=== PATIENT | male | born 1950 | race Two or more races ===

== ENCOUNTER 2020-05-23 10:37 | Inpatient (IN) | payer BC, MEDICARE ==
[2020-05-23] MEDS ORDERED: SODIUM CHLORIDE 0.9% 1,000 ML IV STA (10:56)
--- NOTE | 2020-05-23 11:05 | ED ---
General Adult HPI - General Chief complaint: Weakness Stated complaint: SOB, weakness Time Seen by Provider: 05/23/20 10:55 Source: patient Mode of arrival: ambulatory Limitations: no limitations - History of Present Illness Initial comments: Dictation was produced using Emulate dictation software. please excuse any grammatical, word or spelling errors. This patient was cared for during a federal and state declared state of emergency secondary to Covid 19 Chief Complaint: 70-year-old male multiple comorbidities presents with general ized weakness. History of Present Illness: 70-year-old male he has past medical history of liver transplant performed several years ago in [place]. 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 Since yesterday patient is noted that he's been significantly weaker. Complains of mild shortness of breath it's only worse with exertion. Just reports that he has palpitations. Reports that his palpitations are constant. He has no pain complaints. Otherwise he feels okay. Denies any nausea vomiting. No abdominal pain. No diarrhea. He denies any cardiac or lung problems. States that he feels very weak especially with ambulating to the bathroom. Patient lives in [place] however he is in the area staying at his house in [place]. The ROS documented in this emergency department record has been reviewed and confirmed by me. Those systems with pertinent positive or negative responses have been documented in the HPI. All other systems are other negative and/or n oncontributory. PHYSICAL EXAM: General Impression: Alert and oriented x3, not in acute distress HEENT: Normocephalic atraumatic, extra-ocular movements intact, pupils equal and reactive to light bilaterally, mucous membranes moist. Cardiovascular: Tachycardic, regular, grade 2/6 murmur Chest: Able to complete full sentences, no retractions, no tachypnea Abdomen: abdomen soft, non-tender, non-distended, no organomegaly Musculoskeletal: Pulses present and equal in all extremities, no peripheral edema Motor: no focal deficits noted Neurological: CN II-XII grossly intact, no focal motor or sensory deficits noted Skin: Intact with no visualized rashes Psych: Normal affect and mood ED course: 70-year-old male presents with palpitations, generalized weakness all signs upon arrival shows heart rate 133, blood pressure 92/63, rest of vital signs within acceptable limits Laboratory evaluation obtained. Patient is leukocytosis of 13.8 of unclear significance. The localizing symptoms to suggest infection. Hemoglobin is 10.1. Coag panel is unremarkable. D-dimer is 0.59. Age-adjusted level is normal. Metabolic panel shows some 132, potassium 5.2 with slight hemolysis. There is mild acidosis. BUN 76, crit any sort 0.06. This is concerning for prerenal azotemia. Glucose is 177. AST 67, ALT is 52, alk phos is 294. Troponin elevated 0.259. There is some concern for cardiac process. Chest x- ray shows right diaphragmatic elevation. Ultrasound was used to look and cardiac windows. There is no pericardial effusion. While waiting in the emergency department patient had an episode of syncope. His heart rate dropped into the 50s and his blood pressure systolic went down into the 70s. EKG was performed showing no dynamic changes. Stat echocardiogram is ordered. Case is discussed with Dr. Murcia who is on-call for cardiology. His recommendations are to trend troponins and he will review echocardiogram. Patient reevaluated at bedside is fully recovered. He states he feels fine after that syncopal event. Echocardiogram was performed. Pending cardiology read. Case is discussed with Dr. Farnsworth. He evaluated patient bedside and was agreeable for cardiac stepdown admission. EKG interpretation: Ventricular rate 131, sinus tachycardia,. 160, QRS 68, QTC 419. No OH prolongation, no QTC prolongation, no ST or T-wave changes noted. EKG compared to [default value] showing no changes. Overall, this EKG is unremarkable - Related Data Home Medications Medication Instructions Recorded Confirmed Acetaminophen Tab [Tylenol Tab] 1,000 mg PO Q6HR PRN 05/23/20 05/23/20 Allopurinol [Zyloprim] 100 mg PO DAILY 05/23/20 05/23/20 Diltiazem Oral [Cardizem Oral] 30 mg PO BID 05/23/20 05/23/20 Multivitamins, Thera [Multivitamin 1 tab PO DAILY 05/23/20 05/23/20 (formulary)] Tenofovir Alafenamide Fumarate 25 mg PO DAILY 05/23/20 05/23/20 [Vemlidy] Ursodiol [Moisés] 250 mg PO TID 05/23/20 05/23/20 cloNIDine HCL [Catapres] 0.1 mg PO BID 05/23/20 05/23/20 Allergies Allergy/AdvReac Type Severity Reaction Status Date / Time No Known Allergies Allergy Verified 05/23/20 11:47 Review of Systems ROS Statement: Those systems with pertinent positive or pertinent negative responses have been documented in the HPI. ROS Other: All systems not noted in ROS Statement are negative. Past Medical History Past Medical History: Liver Disease Additional Past Medical History / Comment(s): liver transplant History of Any Multi-Drug Resistant Organisms: None Reported Additional Past Surgical History / Comment(s): liver transplant 1988 Past Psychological History: No Psychological Hx Reported Smoking Status: Never smoker Past Alcohol Use History: None Reported Past Drug Use History: None Reported General Exam Limitations: no limitations Course Vital Signs 05/23/20 05/23/20 05/23/20 10:41 10:44 11:44 Temperature 97.7 F Pulse Rate 133 H 103 H Respiratory 16 20 20 Rate Blood Pressure 92/63 O2 Sat by Pulse 98 Oximetry 05/23/20 05/23/20 12:30 13:00 Temperature Pulse Rate 48 L 107 H Respiratory 14 14 Rate Blood Pressure 94/59 O2 Sat by Pulse 100 100 Oximetry Medical Decision Making - Lab Data Result diagrams: 05/23/20 11:19 05/23/20 11:19 Lab Results 05/23/20 05/23/20 05/23/20 Range/Units 11:19 11:19 11:19 WBC 13.8 H (3.8-10.6) k/uL RBC 3.29 L (4.30-5.90) m/uL Hgb 10.1 L (13.0-17.5) gm/dL Hct 31.6 L (39.0-53.0) % MCV 96.0 (80.0-100.0) fL MCH 30.9 (25.0-35.0) pg MCHC 32.1 (31.0-37.0) g/dL RDW 14.5 (11.5-15.5) % Plt Count 247 (150-450) k/uL Neutrophils % 85 % Lymphocytes % 10 % Monocytes % 3 % Eosinophils % 1 % Basophils % 0 % Neutrophils # 11.6 H (1.3-7.7) k/uL Lymphocytes # 1.4 (1.0-4.8) k/uL Monocytes # 0.5 (0-1.0) k/uL Eosinophils # 0.1 (0-0.7) k/uL Basophils # 0.1 (0-0.2) k/uL PT 10.0 (9.0-12.0) sec INR 1.0 (<1.2) APTT 24.2 (22.0-30.0) sec D-Dimer 0.59 (<0.60) mg/L FEU VBG pH (7.31-7.41) VBG pCO2 (37-51) mmHg VBG HCO3 (24-28) mmol/L Sodium 132 L (137-145) mmol/L Potassium 5.2 H (3.5-5.1) mmol/L Chloride 103 (98-107) mmol/L Carbon Dioxide 19 L (22-30) mmol/L Anion Gap 10 mmol/L BUN 76 H (9-20) mg/dL Creatinine 1.06 (0.66-1.25) mg/dL Est GFR (CKD-EPI)AfAm 83 (>60 ml/min/1.73 sqM) Est GFR (CKD-EPI)NonAf 72 (>60 ml/min/1.73 sqM) Glucose 177 H (74-99) mg/dL POC Glucose (mg/dL) (75-99) mg/dL POC Glu Engine Testing Supervisor ID Plasma Lactic Acid Cirilo (0.7-2.0) mmol/L Calcium 9.8 (8.4-10.2) mg/dL Magnesium 1.8 (1.6-2.3) mg/dL Total Bilirubin 0.7 (0.2-1.3) mg/dL AST 67 H (17-59) U/L ALT 52 H (4-49) U/L Alkaline Phosphatase 294 H (38-126) U/L Troponin I (0.000-0.034) ng/mL NT-Pro-B Natriuret Pep pg/mL Total Protein 7.5 (6.3-8.2) g/dL Albumin 3.9 (3.5-5.0) g/dL Lipase 114 (23-300) U/L 05/23/20 05/23/20 05/23/20 Range/Units 11:19 11:19 11:19 WBC (3.8-10.6) k/uL RBC (4.30-5.90) m/uL Hgb (13.0-17.5) gm/dL Hct (39.0-53.0) % MCV (80.0-100.0) fL MCH (25.0-35.0) pg MCHC (31.0-37.0) g/dL RDW (11.5-15.5) % Plt Count (150-450) k/uL Neutrophils % % Lymphocytes % % Monocytes % % Eosinophils % % Basophils % % Neutrophils # (1.3-7.7) k/uL Lymphocytes # (1.0-4.8) k/uL Monocytes # (0-1.0) k/uL Eosinophils # (0-0.7) k/uL Basophils # (0-0.2) k/uL PT (9.0-12.0) sec INR (<1.2) APTT (22.0-30.0) sec D-Dimer (<0.60) mg/L FEU VBG pH (7.31-7.41) VBG pCO2 (37-51) mmHg VBG HCO3 (24-28) mmol/L Sodium (137-145) mmol/L Potassium (3.5-5.1) mmol/L Chloride (98-107) mmol/L Carbon Dioxide (22-30) mmol/L Anion Gap mmol/L BUN (9-20) mg/dL Creatinine (0.66-1.25) mg/dL Est GFR (CKD-EPI)AfAm (>60 ml/min/1.73 sqM) Est GFR (CKD-EPI)NonAf (>60 ml/min/1.73 sqM) Glucose (74-99) mg/dL POC Glucose (mg/dL) (75-99) mg/dL POC Glu Engine Testing Supervisor ID Plasma Lactic Acid Cirilo 1.5 (0.7-2.0) mmol/L Calcium (8.4-10.2) mg/dL Magnesium (1.6-2.3) mg/dL Total Bilirubin (0.2-1.3) mg/dL AST (17-59) U/L ALT (4-49) U/L Alkaline Phosphatase (38-126) U/L Troponin I 0.259 H* (0.000-0.034) ng/mL NT-Pro-B Natriuret Pep 659 pg/mL Total Protein (6.3-8.2) g/dL Albumin (3.5-5.0) g/dL Lipase (23-300) U/L 05/23/20 05/23/20 Range/Units 11:19 12:37 WBC (3.8-10.6) k/uL RBC (4.30-5.90) m/uL Hgb (13.0-17.5) gm/dL Hct (39.0-53.0) % MCV (80.0-100.0) fL MCH (25.0-35.0) pg MCHC (31.0-37.0) g/dL RDW (11.5-15.5) % Plt Count (150-450) k/uL Neutrophils % % Lymphocytes % % Monocytes % % Eosinophils % % Basophils % % Neutrophils # (1.3-7.7) k/uL Lymphocytes # (1.0-4.8) k/uL Monocytes # (0-1.0) k/uL Eosinophils # (0-0.7) k/uL Basophils # (0-0.2) k/uL PT (9.0-12.0) sec INR (<1.2) APTT (22.0-30.0) sec D-Dimer (<0.60) mg/L FEU VBG pH 7.44 H (7.31-7.41) VBG pCO2 31 L (37-51) mmHg VBG HCO3 21 L (24-28) mmol/L Sodium (137-145) mmol/L Potassium (3.5-5.1) mmol/L Chloride (98-107) mmol/L Carbon Dioxide (22-30) mmol/L Anion Gap mmol/L BUN (9-20) mg/dL Creatinine (0.66-1.25) mg/dL Est GFR (CKD-EPI)AfAm (>60 ml/min/1.73 sqM) Est GFR (CKD-EPI)NonAf (>60 ml/min/1.73 sqM) Glucose (74-99) mg/dL POC Glucose (mg/dL) 175 H (75-99) mg/dL POC Glu Engine Testing Supervisor ID Lluvia Hinson Plasma Lactic Acid Cirilo (0.7-2.0) mmol/L Calcium (8.4-10.2) mg/dL Magnesium (1.6-2.3) mg/dL Total Bilirubin (0.2-1.3) mg/dL AST (17-59) U/L ALT (4-49) U/L Alkaline Phosphatase (38-126) U/L Troponin I (0.000-0.034) ng/mL NT-Pro-B Natriuret Pep pg/mL Total Protein (6.3-8.2) g/dL Albumin (3.5-5.0) g/dL Lipase (23-300) U/L Disposition Clinical Impression: Weakness Disposition: ADMITTED IP TO THIS HOSP Condition: Fair Referrals: Kenyon Khan MD [Primary Care Provider] - 1-2 days Decision Time: 13:36
[2020-05-23 11:24] LABS: Basophils # (A) 0.1 k/uL (0-0.2); Basophils % (A) 0 %; Eosinophils # (A) 0.1 k/uL (0-0.7); Eosinophils % (A) 1 %; HCT 31.6 % (39.0-53.0); HGB 10.1 gm/dL (13.0-17.5); Lymphocytes # (A) 1.4 k/uL (1.0-4.8); Lymphocytes % (A) 10 %; MCH 30.9 pg (25.0-35.0); MCHC 32.1 g/dL (31.0-37.0); Mean Platelet Volume 9.4; Monocytes # (A) 0.5 k/uL (0-1.0); Monocytes % (A) 3 %; Neutrophils # (A) 11.6 k/uL (1.3-7.7); Neutrophils % (A) 85 %; Platelet Count 247 k/uL (150-450); RBC 3.29 m/uL (4.30-5.90); RDW 14.5 % (11.5-15.5); WBC 13.8 k/uL (3.8-10.6)
[2020-05-23 11:32] LABS: VBG PH 7.44 (7.31-7.41)
[2020-05-23 11:34] LABS: Albumin 3.9 g/dL (3.5-5.0); Calcium 9.8 mg/dL (8.4-10.2); Total Bilirubin 0.7 mg/dL (0.2-1.3); Total Protein 7.5 g/dL (6.3-8.2)
[2020-05-23 11:36] LABS: Magnesium 1.8 mg/dL (1.6-2.3); Potassium 5.2 mmol/L (3.5-5.1)
--- NOTE | 2020-05-23 11:43 | XR ---
EXAMINATION TYPE: XR chest 1V portable DATE OF EXAM: 05/23/2020 Comparison: None Clinical History: 70 year-old male shortness of breath, dyspnea Findings: Heart normal size. Aorta and pulmonary vasculature within normal limits. Asymmetric elevation right h emidiaphragm. Underlying small right effusion difficult to exclude. Impression: Asymmetric elevation right hemidiaphragm of unknown chronicity. Query any possibility of hemidiaphrag matic paralysis. Underlying small right effusion difficult to exclude. A lateral view could better as sess.
[2020-05-23 11:50] LABS: D-Dimer 0.59 mg/L FEU (<0.60); Partial Thromboplastin Time 24.2 sec (22.0-30.0)
[2020-05-23] MEDS ORDERED: HEPARIN SODIUM,PORCINE 5,000 UNIT/ML 1 ML VIAL IV PRN (12:10)
[2020-05-23] MEDS ORDERED: HEPARIN SODIUM,PORCINE 5,000 UNIT/ML 1 ML VIAL IV ONE (12:10)
[2020-05-23] MEDS ORDERED: HEPARIN SOD,PORK IN 0.45% NACL 25,000 UNIT in 0.45% NACL 1 250ML.BAG IV SCH (12:15)
[2020-05-23] MEDS ORDERED: SODIUM CHLORIDE 0.9% 1,000 ML IV ONE (12:40)
[2020-05-23 12:48] LABS: Glucose,Whole Blood 175 mg/dL (75-99)
[2020-05-23] MEDS ORDERED: ACETAMINOPHEN TAB 500 MG TAB PO PRN (13:29)
[2020-05-23] MEDS ORDERED: ACETAMINOPHEN TAB 325 MG TAB PO PRN (13:34)
[2020-05-23] MEDS ORDERED: NALOXONE 0.4 MG/ML 1 ML VIAL IV PRN (13:34)
[2020-05-23] MEDS ORDERED: ASPIRIN 81 MG PO STA (13:35)
--- NOTE | 2020-05-23 15:33 | P.HPIM ---
History of Present Illness Patient came in with compensative palpitations and the shortness of breath on exertion denied any orthopnea proximal nocturnal dyspnea. Patient denied any chest pain. Patient had nausea vomiting. Patient had mildly elevated troponin of around 0.2 the second one is around 0.3 because of which patient is being admitted for possible non-ST elevation microinfarction check EKG showed sinus tachycardia without any significant abnormality. Patient does have history of liver transplant patient was on immunosuppressive therapy and to 5 years ago, his weight is up as if therapy was discussed uterine years ago. Patient always is on Cardizem and clonidine for blood pressure Ativan for heart rate patient is hypotensive here in the hospital and patient had a syncopal episode secondary to hypotension. Patient is bit hyponatremic with mild acute renal failure I do not have any orthostatic vitals available which will be ordered. Patient was started on IV fluids and given boluses and patient will be continued on normal saline at 100 mL per hour. Patient did complain of generalized abdominal discomfort with no obvious pain Review of Systems REVIEW OF SYSTEMS: CONSTITUTIONAL: No fever, no malaise, no fatigue. HEENT: No recent visual problems or hearing problems. Denied any sore throat. CARDIOVASCULAR: No chest pain, orthopnea, PND,. PULMONARY: No shortness of breath, no cough, no hemoptysis. GASTROINTESTINAL: No diarrhea, no nausea, no vomiting, no abdominal pain. NEUROLOGICAL: No headaches, no weakness, no numbness. HEMATOLOGICAL: Denies any bleeding or petechiae. GENITOURINARY: Denies any burning micturition, frequency, or urgency. MUSCULOSKELETAL/RHEUMATOLOGICAL: Denies any joint pain, swelling, or any muscle pain. ENDOCRINE: Denies any polyuria or polydipsia. The rest of the 14-point review of systems is negative. Past Medical History Past Medical History: Liver Disease Additional Past Medical History / Comment(s): liver transplant History of Any Multi-Drug Resistant Organisms: None Reported Additional Past Surgical History / Comment(s): liver transplant 1988 Past Psychological History: No Psychological Hx Reported Smoking Status: Never smoker Past Alcohol Use History: None Reported Past Drug Use History: None Reported Medications and Allergies Home Medications Medication Instructions Recorded Confirmed Type Acetaminophen Tab [Tylenol Tab] 1,000 mg PO Q6HR PRN 05/23/20 05/23/20 History Allopurinol [Zyloprim] 100 mg PO DAILY 05/23/20 05/23/20 History Diltiazem Oral [Cardizem Oral] 30 mg PO BID 05/23/20 05/23/20 History Multivitamins, Thera [Multivitamin 1 tab PO DAILY 05/23/20 05/23/20 History (formulary)] Tenofovir Alafenamide Fumarate 25 mg PO DAILY 05/23/20 05/23/20 History [Vemlidy] Ursodiol [Moisés] 250 mg PO TID 05/23/20 05/23/20 History cloNIDine HCL [Catapres] 0.1 mg PO BID 05/23/20 05/23/20 History Allergies Allergy/AdvReac Type Severity Reaction Status Date / Time No Known Allergies Allergy Verified 05/23/20 11:47 Physical Exam Vitals: Vital Signs Temp Pulse Resp BP Pulse Ox 05/23/20 15:12 98 F 103 H 14 101/70 100 05/23/20 14:00 107 H 14 107/67 100 05/23/20 13:00 107 H 14 94/59 100 05/23/20 12:30 48 L 14 100 05/23/20 11:44 103 H 20 05/23/20 10:44 20 05/23/20 10:41 97.7 F 133 H 16 92/63 98 Intake and Output 05/23/20 05/23/20 05/23/20 06:59 14:59 22:59 Other: Weight 61.235 kg PHYSICAL EXAMINATION: GENERAL: The patient is alert and oriented x3, not in any acute distress. Well developed, well nourished. HEENT: Pupils are round and equally reacting to light. EOMI. No scleral icterus. No conjunctival pallor. Normocephalic, atraumatic. No pharyngeal erythema. No thyromegaly. CARDIOVASCULAR: S1 and S2 present. No murmurs, rubs, or gallops. Mild sinus tachycardia PULMONARY: Chest is clear to auscultation, no wheezing or crackles. ABDOMEN: Soft, nontender, nondistended, normoactive bowel sounds. No palpable organomegaly. MUSCULOSKELETAL: No joint swelling or deformity. EXTREMITIES: No cyanosis, clubbing, or pedal edema. NEUROLOGICAL: Gross neurological examination did not reveal any focal deficits. SKIN: No rashes. Results CBC & Chem 7: 05/23/20 11:19 05/23/20 11:19 Labs: Abnormal Lab Results - Last 24 Hours (Table) 05/23/20 05/23/20 05/23/20 Range/Units 11:19 11:19 11:19 WBC 13.8 H (3.8-10.6) k/uL RBC 3.29 L (4.30-5.90) m/uL Hgb 10.1 L (13.0-17.5) gm/dL Hct 31.6 L (39.0-53.0) % Neutrophils # 11.6 H (1.3-7.7) k/uL VBG pH (7.31-7.41) VBG pCO2 (37-51) mmHg VBG HCO3 (24-28) mmol/L Sodium 132 L (137-145) mmol/L Potassium 5.2 H (3.5-5.1) mmol/L Carbon Dioxide 19 L (22-30) mmol/L BUN 76 H (9-20) mg/dL Glucose 177 H (74-99) mg/dL POC Glucose (mg/dL) (75-99) mg/dL AST 67 H (17-59) U/L ALT 52 H (4-49) U/L Alkaline Phosphatase 294 H (38-126) U/L Troponin I 0.259 H* (0.000-0.034) ng/mL 05/23/20 05/23/20 05/23/20 Range/Units 11:19 12:37 14:19 WBC (3.8-10.6) k/uL RBC (4.30-5.90) m/uL Hgb (13.0-17.5) gm/dL Hct (39.0-53.0) % Neutrophils # (1.3-7.7) k/uL VBG pH 7.44 H (7.31-7.41) VBG pCO2 31 L (37-51) mmHg VBG HCO3 21 L (24-28) mmol/L Sodium (137-145) mmol/L Potassium (3.5-5.1) mmol/L Carbon Dioxide (22-30) mmol/L BUN (9-20) mg/dL Glucose (74-99) mg/dL POC Glucose (mg/dL) 175 H (75-99) mg/dL AST (17-59) U/L ALT (4-49) U/L Alkaline Phosphatase (38-126) U/L Troponin I 0.336 H* (0.000-0.034) ng/mL Assessment and Plan Plan: -Possibility of non-ST elevation myocardial infarction which cannot be completely ruled out at this time patient will continued on IV heparin. Cardiology was consulted. -Syncope: Probably secondary to hypotension medication-induced with a competent of dehydration patient will continue on IV fluids patient's Cardizem and the clonidine will be held but patient may need rate control medication with beta delmer small dose to avoid reflex tachycardia. -Palpitations: Secondary to sinus tachycardia TSH will be obtained -History of liver transplant presently not on any suppressive therapy which was recently discontinued about 5 years ago -Hypovolemic hyponatremia expected to improve with IV fluids and repeat [place] metabolic profile -Mild elevation of his enzymes which is a nonspecific elevation we'll repeat liver enzymes tomorrow again to make sure there -Mild hyperkalemia secondary to hemolysis
[2020-05-23] MEDS: ursodioL 300 MG CAP PO SCH ×2 (16:43→21:39)
[2020-05-23] MEDS: SODIUM CHLORIDE 0.9% 1,000 ML IV SCH ×2 (16:44→21:30)
--- NOTE | 2020-05-23 17:58 | P.CRDCN ---
History of Present Illness Consult date: 05/23/20 Chief complaint: Palpitations History of present illness: HISTORY OF PRESENTING ILLNESS This is a pleasant 70-year-old male past medical history significant for liver transplant, cholelithiasis status post multiple ERCPs, and hypertension. He is not followed with anyone in the office in approximately 10 years. We have been asked to see in consultation for elevated troponin. Patient menses been doing well up until yesterday. Yesterday he had acute onset of palpitations and some shortness breath. He admits his palpitations would be worse after he exerted himself and would feel like a pounding in the chest. Denies any chest pain, pressure or tightness. He does admit to occasional shortness breath with this. He had been fairly active before this with routine swimming and outdoor activities. He did undergo liver transplant approximately 20 years ago and has been doing well with this. He had complications with multiple ERCPs a few years back however has done relatively well. He denies prior history of anemia however his hemoglobin was noted to be mildly low. Denies any hematochezia or melena. No prior cardiac history, no history of murmur per patient, no palpitations prior to the one day ago. While in the emergency department he apparently had an episode of syncope with drop in his blood pressure in the 70s and apparently heart rate of 50s. Patient admits to 1 prior episode of syncope around the time of complications from his liver transplant however routinely does not feel lightheaded and no history of other syncope. His troponins were noted to be mildly elevated and patient was placed on a heparin drip. DIAGNOSTICS EKG reveals sinus tachycardia at [address]-T wave abnormalities.. Chest xray no acute process. Laboratory reviewed, hemoglobin 10.1, white blood cell count 13.8, sodium 132, potassium 5.2, bicarb 19, BUN 76, creatinine 1.06. Troponin 0.259, 0.336 Current cardiac medications include aspirin, heparin drip,. REVIEW OF SYSTEMS At the time of my exam: CONSTITUTIONAL: Denies fever or chills. CARDIOVASCULAR: Denies chest pain, + intermittent shortness of breath, no orthopnea, PND, + palpitations. RESPIRATORY: Denies cough. GASTROINTESTINAL: Denies abdominal pain, diarrhea, constipation, nausea or vomiting. MUSCULOSKELETAL: Denies myalgias. NEUROLOGIC: Denies numbness, tingling or weakness. ENDOCRINE: Denies fatigue, weight change, polydipsia or polyurina. GENITOURINARY: Denies burning, hematuria or urgency with micturation. HEMATOLOGIC: Denies history of anemia or bleeding. PHYSICAL EXAMINATION Blood pressure 116/64 heart rate 111 afebrile and maintaining oxygen saturation on 2 L nasal cannula. CONSTITUTIONAL: No apparent distress. HEENT: Head is normocephalic. Pupils are equal, round. Sclerae anicteric. Mucous membranes of the mouth are moist. No JVD. No carotid bruit. CHEST EXAMINATION: Lungs are clear to auscultation. No chest wall tenderness is noted on palpation or with deep breathing. HEART EXAMINATION: Tachycardic rate and regular rhythm. S1, S2 heard. + 3/6 systolic murmur, no gallops or rub. ABDOMEN: Soft, nontender. Positive bowel sounds. EXTREMITIES: 2+ peripheral pulses, no lower extremity edema and no calf tenderness. NEUROLOGIC EXAMINATION: Patient is awake, alert and oriented x3. ASSESSMENT 1. Syncope while in the emergency department with drop in blood pressures to the 70s and heart rates in the 50s. Quickly improved and may be vasovagal in nature as per note no significant arrhythmias noted on telemetry by ER. Rule o ut other including valvular disease given significant murmur on exam. 2. Elevated troponin of unclear significance. Minorly elevated at 0.259 and 0.336. May be demand ischemia versus type 1 NSTEMI etiology. 3. Systolic ejection murmur 4. Essential hypertension, on home clonidine and diltiazem 5. Sinus tachycardia likely reactive 6. Palpitations which appear related to sinus tachycardia monitor, no evidence of arrhythmia on monitor 7. History of liver transplant 8. Increased BUN to creatinine ratio, hyponatremia likely signifying mild dehydration however no history of decreased PO intake per patient PLAN Patient with presentation of acute onset one day of worsening palpitations with telemetry only showing sinus tachycardia. Suspect sinus tachycardia is compensatory and may be related to dehydration. Patient has significant systolic ejection murmur and we must rule out significant valvular disease especially given syncopal episode. Syncopal episode however sounds like a vaso vagal episode with decrease in heart rate 50s and drop in blood pressure to the 70s. Check 2-D echo for all the function and evaluate for valvular heart disease. Continue heparin drip and aspirin. Patient has had borderline blood pressures however will add low-dose beta delmer. Continue with IV fluids given findings likely consistent with dehydration. Further recommendations to follow after 2-D echo results. Past Medical History Past Medical History: Liver Disease Additional Past Medical History / Comment(s): liver transplant History of Any Multi-Drug Resistant Organisms: None Reported Additional Past Surgical History / Comment(s): liver transplant 1988 Past Anesthesia/Blood Transfusion Reactions: No Reported Reaction Past Psychological History: No Psychological Hx Reported Smoking Status: Never smoker Past Alcohol Use History: None Reported Past Drug Use History: None Reported Medications and Allergies Home Medications Medication Instructions Recorded Confirmed Type Acetaminophen Tab [Tylenol Tab] 1,000 mg PO Q6HR PRN 05/23/20 05/23/20 History Allopurinol [Zyloprim] 100 mg PO DAILY 05/23/20 05/23/20 History Diltiazem Oral [Cardizem Oral] 30 mg PO BID 05/23/20 05/23/20 History Multivitamins, Thera [Multivitamin 1 tab PO DAILY 05/23/20 05/23/20 History (formulary)] Tenofovir Alafenamide Fumarate 25 mg PO DAILY 05/23/20 05/23/20 History [Vemlidy] Ursodiol [Moisés] 250 mg PO TID 05/23/20 05/23/20 History cloNIDine HCL [Catapres] 0.1 mg PO BID 05/23/20 05/23/20 History Allergies Allergy/AdvReac Type Severity Reaction Status Date / Time No Known Allergies Allergy Verified 05/23/20 11:47 Physical Exam Vitals: Vital Signs Temp Pulse Pulse Resp BP BP Pulse Ox 05/23/20 15:46 97.8 F 111 H 16 116/64 99 05/23/20 15:12 98 F 103 H 14 101/70 100 05/23/20 14:00 107 H 14 107/67 100 05/23/20 13:00 107 H 14 94/59 100 05/23/20 12:30 48 L 14 100 05/23/20 11:44 103 H 20 05/23/20 10:44 20 05/23/20 10:41 97.7 F 133 H 16 92/63 98 Intake and Output 05/23/20 05/23/20 05/23/20 06:59 14:59 22:59 Other: # Voids 1 0 # Bowel Movements 0 Weight 61.235 kg Results 05/23/20 11:19 05/23/20 11:19 Cardiac Enzymes 05/23/20 05/23/20 05/23/20 Range/Units 11:19 11:19 14:19 AST 67 H (17-59) U/L Troponin I 0.259 H* 0.336 H* (0.000-0.034) ng/mL Coagulation 05/23/20 Range/Units 11:19 PT 10.0 (9.0-12.0) sec APTT 24.2 (22.0-30.0) sec CBC 05/23/20 Range/Units 11:19 WBC 13.8 H (3.8-10.6) k/uL RBC 3.29 L (4.30-5.90) m/uL Hgb 10.1 L (13.0-17.5) gm/dL Hct 31.6 L (39.0-53.0) % Plt Count 247 (150-450) k/uL Comprehensive Metabolic Panel 05/23/20 Range/Units 11:19 Sodium 132 L (137-145) mmol/L Potassium 5.2 H (3.5-5.1) mmol/L Chloride 103 (98-107) mmol/L Carbon Dioxide 19 L (22-30) mmol/L BUN 76 H (9-20) mg/dL Creatinine 1.06 (0.66-1.25) mg/dL Glucose 177 H (74-99) mg/dL Calcium 9.8 (8.4-10.2) mg/dL AST 67 H (17-59) U/L ALT 52 H (4-49) U/L Alkaline Phosphatase 294 H (38-126) U/L Total Protein 7.5 (6.3-8.2) g/dL Albumin 3.9 (3.5-5.0) g/dL Current Medications Generic Name Dose Route Start Last Admin Trade Name Freq PRN Reason Stop Dose Admin Acetaminophen 1,000 mg 05/23/20 13:29 Tylenol Tab PO Q6HR PRN Pain or Fever > 100.5 Heparin Sodium (Porcine) 0 unit 05/23/20 12:10 Heparin IV PER PROTOCOL PRN Low PTT Protocol Heparin Sodium/Sodium Chloride 250 mls @ 7.348 mls/hr 05/23/20 12:15 05/23/20 12:48 25,000 unit/ Sodium Chloride IV 12 units/kg/hr .Q24H BRIAN 7.348 mls/hr Administration Protocol 12 UNITS/KG/HR Sodium Chloride 1,000 mls @ 100 mls/hr 05/23/20 13:30 05/23/20 16:44 Saline 0.9% IV 100 mls/hr .Q10H BRIAN Administration Naloxone HCl 0.2 mg 05/23/20 13:34 Narcan IV Q2M PRN Opioid Reversal Tenofovir 25 mg 05/24/20 09:00 Alafenamide Fumarate PO [Vemlidy] DAILY BRIAN Ondansetron HCl 4 mg 05/23/20 13:34 Zofran IVP Q8HR PRN Nausea And Vomiting Ursodiol 300 mg 05/23/20 16:00 05/23/20 16:43 Actigall PO 300 mg TID BRIAN Administration Intake and Output 05/23/20 05/23/20 05/23/20 06:59 14:59 22:59 Other: # Voids 1 0 # Bowel Movements 0 Weight 61.235 kg Patient Weight 05/24/20 06:59 Weight 61.235 kg 05/23/20 11:19 05/23/20 11:19
--- NOTE | 2020-05-23 18:00 | ECHOF ---
Referral Reason:tachycardia, elevated troponin, syncope MEASUREMENTS -------- HEIGHT: 172.7 cm WEIGHT: 61.2 kg BP: RVIDd: 2.0 cm (< 3.3) IVSd: 1.5 cm (0.6 - 1.1) LVIDd: 2.3 cm (3.9 - 5.3) LVPWd: 1.5 cm (0.6 - 1.1) IVSs: 2.0 cm LVIDs: 1.2 cm LVPWs: 1.7 cm Ao Diam: 3.6 cm (2.0 - 3.7) AV Cusp: 2.0 cm (1.5 - 2.6) LA Diam: 3.2 cm (2.7 - 3.8) MV EXCURSION: 13.666 mm (> 18.000) MV EF SLOPE: 33 mm/s (70 - 150) EPSS: 0.2 cm MV E Gordo: 1.11 m/s MV DecT: 217 ms MV A Gordo: 1.10 m/s MV E/A Ratio: 1.01 AV maxP.21 mmHg AV meanP.15 mmHg RAP: 5.00 mmHg RVSP: 29.57 mmHg FINDINGS -------- Resting tachycardia (HR>100bpm). This was a technically good study. The left ventricular size is normal. There is moderate concentric left ventricular hypertrophy. O verall left ventricular systolic function is normal with, an EF between 65 - 70 %. There appears to b e JOSE M with a LVOT Obstruction with peak gradient of over 86mmHg. Due to the high heart rate the flow is aliasing. The right ventricle is normal in size. The left atrial size is normal. The right atrial size is normal. The aortic valve is trileaflet and appears structurally normal. The mitral valve leaflets appear redundant. Moderate mitral regurgitation is present. The tricuspid valve appears structurally normal. Mild tricuspid regurgitation present. Right vent ricular systolic pressure is normal at < 35 mmHg. There is no pulmonic regurgitation present. The aortic root size is normal. Normal inferior vena cava with normal inspiratory collapse consistent with estimated right atrial pre ssure of 5 mmHg. There is no pericardial effusion. CONCLUSIONS -------- 1. The left ventricular size is normal. 2. There is moderate concentric left ventricular hypertrophy. 3. Overall left ventricular systolic function is normal with, an EF between 65 - 70 %. 4. There appears to be JOSE M with a LVOT Obstruction with a peak gradient of over 86 mmHg. Due to the h igh heart rate the flow is aliasing.. 5. The mitral valve leaflets appear redundant. 6. Moderate mitral regurgitation is present. 7. Mild tricuspid regurgitation present. HEALTH FACILITIES SURVEYOR: Guillermina Martin RDCS
[2020-05-23] MEDS ORDERED: ALPRAZolam 0.25 MG TAB PO STA (18:25)
[2020-05-23] MEDS ORDERED: METOPROLOL TARTRATE 12.5 MG TAB PO SCH (21:00)
[2020-05-23 21:07] LABS: Glucose,Whole Blood 180 mg/dL (75-99)
[2020-05-23] MEDS ORDERED: SODIUM CHLORIDE 0.9% 500 ML 500 ML IV ONE (21:27)
[2020-05-23] MEDS: MAG HYDROX/AL HYDROX/SIMETH 30 ML CUP PO PRN (21:36)
[2020-05-24] MEDS: ONDANSETRON 4 MG/2 ML VIAL IVP PRN (02:31)
[2020-05-24 03:35] LABS: Glucose,Whole Blood 203 mg/dL (75-99)
[2020-05-24] MEDS ORDERED: SODIUM CHLORIDE 0.9% 500 ML 500 ML IV ONE (03:42)
[2020-05-24 07:17] LABS: Hypochromasia Slight; MCHC 30.4 g/dL (31.0-37.0); MCV 98.9 fL (80.0-100.0); Macrocytosis Slight; Mean Platelet Volume 9.3; Platelet Count 187 k/uL (150-450); RBC 1.66 m/uL (4.30-5.90); RDW 15.2 % (11.5-15.5); WBC 18.8 k/uL (3.8-10.6)
[2020-05-24 07:29] LABS: HCT 16.4 % (39.0-53.0)
[2020-05-24 07:33] LABS: ALT 40 U/L (4-49); AST 49 U/L (17-59); African American GFR (CKD) >90 (>60 ml/min/1.73 sqM); Albumin 2.5 g/dL (3.5-5.0); Alkaline Phosphatase 189 U/L (38-126); Anion Gap 4 mmol/L; Blood Urea Nitrogen 71 mg/dL (9-20); Carbon Dioxide 22 mmol/L (22-30); Chloride 113 mmol/L (98-107); Glucose 135 mg/dL (74-99); Non-African American GFR(CKD) 79 (>60 ml/min/1.73 sqM); Potassium 4.6 mmol/L (3.5-5.1); Sodium 139 mmol/L (137-145); Total Bilirubin 0.4 mg/dL (0.2-1.3); Total Protein 5.1 g/dL (6.3-8.2)
[2020-05-24] MEDS ORDERED: TENOFOVIR ALAFENAMIDE FUMARATE PO SCH (09:00)
--- NOTE | 2020-05-24 09:28 | CT ---
EXAMINATION TYPE: CT abdomen pelvis wo con DATE OF EXAM: 05/24/2020 COMPARISON: None HISTORY: Possible bleed CT DLP: 454.2 mGycm Automated exposure control for dose reduction was used. TECHNIQUE: Helical acquisition of images was performed from the lung bases through the pelvis. CONTRAST: Performed without oral or intravenous contrast. FINDINGS: LUNG BASES: Calcified coronary artery disease. Lung bases are clear. LIVER: There is peripheral nodular contour of the liver with areas of subsegmental hypertrophy and at rophy. BILIARY SYSTEM: Status post cholecystectomy. There is intrahepatic biliary ductal dilatation. There i s soft tissue prominence within the chantel hepatis. The visualized common bile duct is within normal l imits for size. PANCREAS: No peripancreatic stranding. SPLEEN: Not enlarged. ADRENALS: Normal. KIDNEYS: No hydronephrosis. Left interpolar 6 mm nonobstructing renal calculus. Left nonobstructing l ower pole 10 mm calculus within the renal pelvis. Bilateral renal cysts and too small to characterize hypodense lesions. BOWEL: No evidence of bowel obstruction. Sigmoid colon diverticulosis. There is thickening of the de scending colon with mild inflammatory stranding. Normal appendix. PERITONEUM: No free air is visualized. There is trace fluid near the inferior right hepatic lobe in Fofana's pouch. Mild mesenteric stranding is seen diffusely. ADENOPATHY: No gris lymphadenopathy. Nonenlarged mesenteric lymph nodes are seen, primarily in the right upper quadrant. PELVIS: Prostamegaly with calcifications. Urinary bladder is unremarkable on noncontrast exam. VASCULATURE: There is infrarenal abdominal aortic aneurysm measuring up to 3.2 cm AP by 3.1 cm trans verse. Arising from the anterior aneurysm there is a calcified prominent blood vessel which courses s uperiorly up towards the left liver, and is not discretely seen distally. MUSCULOSKELETAL: Straightening of the lumbar lordosis. Degenerative changes of the spine. IMPRESSION: 1. No evidence of retroperitoneal hemorrhage or focal fluid collection. 2. Thickening of the ascending colon with mild inflammatory stranding may represent colitis. 3. Cirrhotic-appearing nodular liver, with intrahepatic biliary ductal dilatation and soft tissue pr ominence within the chantel hepatis. Differential includes obstruction due to a cirrhotic scarring and fibrosis, as well as neoplastic etiology. Follow-up MRI liver and MRCP with intravenous contrast is r ecommended. 4. Infrarenal 3.2 cm abdominal aortic aneurysm. There is a calcified dilated vessel off of the anter ior aneurysm sac coursing up towards the left liver and not seen distally. Findings may represent karen iant anatomy such as replaced or accessory hepatic artery. 5. Nonobstructing left renal calculi.
--- NOTE | 2020-05-24 10:09 | PN ---
PROGRESS NOTE This is a followup note. This is a 70-year-old gentleman who was admitted to the hospital yesterday. He was seen by my associate, Dr. Murcia, in consultation. I am seeing the patient for the first time this morning covering Dr. Murcia. The patient was initially admitted with syncope secondary to hypotension and mild troponin elevation. He was started on IV heparin. This patient was admitted to the hospital, given intravenous heparin because of the mild troponin elevation. Early this morning, the patient apparently had a syncopal event with hypotension with profound drop in his systolic blood pressure. His labs came back with a hemoglobin of 5 and his BUN is elevated at 71 with a creatinine of 0.9. The white cell count is also elevated. The patient underwent abdominal CT and corrugator supervisor has been consulted. I am seeing him for the first time. The patient's CT abdomen and pelvis are pending at this time. The patient is awaiting blood transfusion. The patient had 2 syncopal events through last night. PHYSICAL EXAMINATION: At the time of my evaluation this morning, the patient is afebrile, heart rate is 114 beats per minute, blood pressure is 90/60, O2 saturation is 100, respiratory rate is 16. There is no jugular venous distention. Chest exam reveals good air entry bilaterally. Heart exam reveals first and second heart sounds and an ejection systolic murmur in the aortic area. Abdomen is soft. Examination of the extremities did not reveal any edema. Peripheral pulses are diminished but palpable. LAB: Show white cell count of 18.8, hemoglobin is 5, potassium is 4.6, BUN is 71, creatinine is 0.98. AST, ALT are normal. Albumin is 2.5. ASSESSMENT: 1. Syncope secondary to intravascular volume depletion related to acute blood loss. 2. Severe symptomatic anemia. The exact source of blood loss is unclear, but the patient could be having a retroperitoneum bleed. CT abdomen pelvis results are pending at this time. 3. Hypertrophic obstructive cardiomyopathy. I reviewed the patient's echocardiogram. He has a left ventricular outflow tract gradient of 86 mm with moderate mitral regurgitation. LV function is normal. PLAN: I instructed the nurses to transfer the patient stat to the intensive care unit. I asked them to expedite blood transfusion. The patient is already receiving IV fluids which we will continue. I spoke to the hospitalist and see if we should consider transferring him to a tertiary care center. I will follow the CT abdomen results and adjust therapies as needed. I spoke to the patient and the son. PAULO / SEBASTIANN: [id number] /
[2020-05-24 10:30] LABS: Glucose,Whole Blood 150 mg/dL (75-99)
[2020-05-24] MEDS: SODIUM CHLORIDE 0.9% 1,000 ML IV SCH ×3 (11:00→14:10)
--- NOTE | 2020-05-24 11:26 | P.CNPUL ---
History of Present Illness Consult date: 05/24/20 Reason for consult: dyspnea, other Chief complaint: Recurrent Syncopal episode History of present illness: This is a 70-year-old male who was seen evaluated and examined in ICU patient, patient came into the hospital with acute onset of generalized weakness, data predominantly have been obtained from the patient as well as the nephew present at bedside, in addition to that patient was having palpitation and drop his blood pressure, patient is staying in [facility] Otherwise he used to live in [place], on arrival in the emergency department patient noted to have a blood pressure of 92/63 was tachycardic, chelo ventura was noted to have high between of 76 creatinine was normal, troponin was mildly elevated, patient was on heparin drip overnight the heparin drip however have been stopped as patient was lately yelling more syncopal episode and eventually transferred to the ICU most recent vitals reveal blood pressure of 97/65 respiratory rate was 16 heart rate 114 patient is afebrile awake and alert 100% oxygen at room air, his white cell count is up from 13,800-18,800 hemoglobin have dropped down from 10 to 5, he is getting first unit of packed RBC his x-ray shows slight elevated right hemidiaphragm, echocardiogram revealed some LVH along with ejection fraction of 65% patient may have a component of l eft ventricular outflow track obstruction due to hypertrophic cardiomyopathy, patient is being scheduled for endoscopy, computed tomography scan of the abdominal and pelvis however negative for retroperitoneal hemorrhage, there is infrarenal abdominal aortic aneurysm of 3.2 cm, stranding inflammatory changes of ascending colon seen sister of colitis, cirrhotic-appearing liver, soft tissue density noted in chantel hepatis Review of Systems All systems: negative Past Medical History Past Medical History: Liver Disease Additional Past Medical History / Comment(s): liver transplant History of Any Multi-Drug Resistant Organisms: None Reported Additional Past Surgical History / Comment(s): liver transplant 1988 Past Anesthesia/Blood Transfusion Reactions: No Reported Reaction Past Psychological History: No Psychological Hx Reported Smoking Status: Never smoker Past Alcohol Use History: None Reported Past Drug Use History: None Reported Medications and Allergies Home Medications Medication Instructions Recorded Confirmed Type Acetaminophen Tab [Tylenol Tab] 1,000 mg PO Q6HR PRN 05/23/20 05/23/20 History Allopurinol [Zyloprim] 100 mg PO DAILY 05/23/20 05/23/20 History Diltiazem Oral [Cardizem Oral] 30 mg PO BID 05/23/20 05/23/20 History Multivitamins, Thera [Multivitamin 1 tab PO DAILY 05/23/20 05/23/20 History (formulary)] Tenofovir Alafenamide Fumarate 25 mg PO DAILY 05/23/20 05/23/20 History [Vemlidy] Ursodiol [Moisés] 250 mg PO TID 05/23/20 05/23/20 History cloNIDine HCL [Catapres] 0.1 mg PO BID 05/23/20 05/23/20 History Allergies Allergy/AdvReac Type Severity Reaction Status Date / Time No Known Allergies Allergy Verified 05/23/20 11:47 Physical Exam Vitals: Vital Signs Temp Pulse Pulse Resp BP BP Pulse Ox 05/24/20 09:56 97.6 F 114 H 16 97/65 100 05/24/20 09:46 97.8 F 114 H 16 83/53 100 05/24/20 08:00 98.1 F 114 H 16 90/60 100 05/24/20 04:00 98.4 F 95 18 93/62 98 05/23/20 23:49 98.8 F 95 18 90/60 97 05/23/20 23:44 90 16 05/23/20 22:30 80/55 05/23/20 22:00 100 75/48 05/23/20 21:15 110 H 77/48 05/23/20 21:00 110 H 75/41 05/23/20 20:00 120 H 16 05/23/20 15:46 97.8 F 111 H 16 116/64 99 05/23/20 15:12 98 F 103 H 14 101/70 100 05/23/20 14:00 107 H 14 107/67 100 05/23/20 13:00 107 H 14 94/59 100 05/23/20 12:30 48 L 14 100 05/23/20 11:44 103 H 20 Intake and Output 05/23/20 05/24/20 05/24/20 22:59 06:59 14:59 Intake Total 70.663 940 80.015 Output Total 200 600 Balance 70.663 740 -519.985 Intake: Intake, IV Titration 70.663 700 80.015 Amount Heparin Sod,Pork in 0.45% 70.663 80.015 NaCl 25,000 unit In 0.45 % NaCl 1 250ml.bag @ 12 UNITS/KG/HR 7.348 mls/hr IV .Q24H [facility] Rx#: [id number] Sodium Chloride 0.9% 1, 200 000 ml @ 75 mls/hr IV . [id number] BRIAN Rx#:[id number] Sodium Chloride 0.9% 500 500 ml 500 ml @ 999 mls/hr IV .Q31M ONE Rx#:[id number] Oral 0 240 Blood Product 0 Rc As-1 Unit 0 [id number] Output: Urine 200 600 Other: # Voids 0 2 # Bowel Movements 0 Weight 63.5 kg - Constitutional General appearance: average body habitus, cooperative, disheveled - EENT Eyes: EOMI, PERRLA - Neck Neck: normal ROM Carotids: bilateral: upstroke normal Thyroid: bilateral: normal size - Respiratory Respiratory: bilateral: CTA - Cardiovascular Rhythm: regular Heart sounds: normal: S1, S2 - Gastrointestinal General gastrointestinal: decreased bowel sounds, soft - Integumentary Integumentary: normal turgor - Neurologic Neurologic: CNII-XII intact - Musculoskeletal Musculoskeletal: gait normal, generalized weakness, strength equal bilaterally - Psychiatric Psychiatric: A&O x's 3, appropriate affect, intact judgment & insight Results - Laboratory Findings CBC and BMP: 05/24/20 07:02 05/24/20 05:53 PT/INR, D-dimer PT 10.0 sec (9.0-12.0) 05/23/20 11:19 INR 1.0 (<1.2) 05/23/20 11:19 D-Dimer 0.59 mg/L FEU (<0.60) 05/23/20 11:19 Abnormal lab findings: Abnormal Labs 05/23/20 05/23/20 05/23/20 11:19 11:19 11:19 WBC 13.8 H RBC 3.29 L Hgb 10.1 L Hct 31.6 L MCHC Neutrophils # 11.6 H APTT VBG pH VBG pCO2 VBG HCO3 Sodium 132 L Potassium 5.2 H Chloride Carbon Dioxide 19 L BUN 76 H Glucose 177 H POC Glucose (mg/dL) Calcium AST 67 H ALT 52 H Alkaline Phosphatase 294 H Troponin I 0.259 H* Total Protein Albumin Crossmatch 08/17/20 08/17/20 08/17/20 11:19 12:37 14:19 WBC RBC Hgb Hct MCHC Neutrophils # APTT VBG pH 7.44 H VBG pCO2 31 L VBG HCO3 21 L Sodium Potassium Chloride Carbon Dioxide BUN Glucose POC Glucose (mg/dL) 175 H Calcium AST ALT Alkaline Phosphatase Troponin I 0.336 H* Total Protein Albumin Crossmatch 05/23/20 05/23/20 05/23/20 17:32 21:05 21:20 WBC RBC Hgb Hct MCHC Neutrophils # APTT 41.7 H VBG pH VBG pCO2 VBG HCO3 Sodium Potassium Chloride Carbon Dioxide BUN Glucose POC Glucose (mg/dL) 180 H Calcium AST ALT Alkaline Phosphatase Troponin I 0.310 H* Total Protein Albumin Crossmatch 05/24/20 05/24/20 05/24/20 03:33 05:53 05:53 WBC RBC Hgb Hct MCHC Neutrophils # APTT 41.7 H VBG pH VBG pCO2 VBG HCO3 Sodium Potassium Chloride 113 H Carbon Dioxide BUN 71 H Glucose 135 H POC Glucose (mg/dL) 203 H Calcium 8.0 L AST ALT Alkaline Phosphatase 189 H Troponin I Total Protein 5.1 L Albumin 2.5 L Crossmatch 05/24/20 05/24/20 05/24/20 07:02 07:05 10:28 WBC 18.8 H RBC 1.66 L Hgb 5.0 L* D Hct 16.4 L* MCHC 30.4 L Neutrophils # APTT VBG pH VBG pCO2 VBG HCO3 Sodium Potassium Chloride Carbon Dioxide BUN Glucose POC Glucose (mg/dL) 150 H Calcium AST ALT Alkaline Phosphatase Troponin I Total Protein Albumin Crossmatch See Detail - Diagnostic Findings Chest x-ray: report reviewed, image reviewed (Computed tomography scan finding reviewed) Assessment and Plan Assessment: Hypovolemic shock Early sepsis Severe anemia Hypertrophic cardiomyopathy 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
[2020-05-24] MEDS ORDERED: VANCOMYCIN IV PER PHARMACY 1 EACH MISC MISCELLANE PRN (12:08)
[2020-05-24] MEDS ORDERED: VANCOMYCIN 1,250 MG in SODIUM CHLORIDE 0.9% 250 ML IVPB ONE (12:45)
[2020-05-24] MEDS ORDERED: ALPRAZolam 0.5 MG TAB PO PRN (13:30)
[2020-05-24] MEDS: PANTOPRAZOLE 40 MG/10 ML VIAL IVP SCH ×2 (13:32→20:14)
[2020-05-24] MEDS: TENOFOVIR ALAFENAMIDE FUMARATE PO SCH (13:33)
[2020-05-24] MEDS: ursodioL 300 MG CAP PO SCH ×3 (13:33→21:46)
[2020-05-24 13:54] LABS: Appearance,Urine Clear (Clear); Bilirubin,Urine Negative (Negative); Blood,Urine Negative (Negative); Color,Urine Light Yellow; Glucose,Urine (UA) Negative (Negative); Ketones,Urine Negative (Negative); Leukocyte Esterase,Urine Negative (Negative); Nitrite,Urine Negative (Negative); Protein,Urine Negative (Negative); Specific Gravity,Urine 1.014 (1.001-1.035); Urobilinogen,Urine <2.0 mg/dL (<2.0)
[2020-05-24 14:38] LABS: Anisocytosis Slight; Basophils % (A) 0 %; Eosinophils % (A) 0 %; HCT 26.8 % (39.0-53.0); Hypochromasia Marked; Lymphocytes % (A) 11 %; MCH 29.7 pg (25.0-35.0); MCHC 30.8 g/dL (31.0-37.0); MCV 96.6 fL (80.0-100.0); Macrocytosis Slight; Mean Platelet Volume 9.3; Monocytes % (A) 5 %; Neutrophils # (A) 14.8 k/uL (1.3-7.7); Neutrophils % (A) 82 %; Platelet Count 144 k/uL (150-450); RBC 2.77 m/uL (4.30-5.90); RDW 16.5 % (11.5-15.5); Reticulocyte % 2.6 % (0.5-2.0)
[2020-05-24 14:42] LABS: HGB 8.2 gm/dL (13.0-17.5)
--- NOTE | 2020-05-24 15:37 | P.PN ---
Subjective Patient came in with compensative palpitations and the shortness of breath on exertion denied any orthopnea proximal nocturnal dyspnea. Patient denied any chest pain. Patient had nausea vomiting. Patient had mildly elevated troponin of around 0.2 the second one is around 0.3 because of which patient is being admitted for possible non-ST elevation microinfarction check EKG showed sinus tachycardia without any significant abnormality. Patient does have history of liver transplant patient was on immunosuppressive therapy and to 5 years ago, h is weight is up as if therapy was discussed uterine years ago. Patient always is on Cardizem and clonidine for blood pressure Ativan for heart rate patient is hypotensive here in the hospital and patient had a syncopal episode secondary to hypotension. Patient is bit hyponatremic with mild acute renal failure I do not have any orthostatic vitals available which will be ordered. Patient was star brandy on IV fluids and given boluses and patient will be continued on normal saline at 100 mL per hour. Patient did complain of generalized abdominal discomfort with no obvious pain 05/24/2020 Patient had prompt with a hemoglobin to 5 from 10. His hemoglobin in the past was around 12. Patient became hypotensive and received more boluses of IV fluids was subsequently transferred to ICU patient was having syncopes from this as well. Discussed with [facility] transplant pain and do not believe patient will need to be transferred [facility] for these purposes patient had multiple ERCPs in the past. Patient continues to be on IV fluids IV heparin was discontinued as patient myocardial infarction is secondary to type II NSTEMI which is again secondary to anemia. Gastroenterology evaluated the patient patient will undergo upper GI endoscopy. Because of patient's hypotension and leukocytosis patient is being evaluated for sepsis with blood cultures although I do not have any clear source of sepsis patient was started on broad-spectrum Zosyn and vancomycin vancomycin will be discontinued and Zosyn will be continued for now patient had a CAT scan of the abdomen which showed mild colitis patient is not requiring any pressors at this time Objective - Vital Signs Vital signs: Vital Signs Temp 98.9 F 05/24/20 14:05 Pulse 116 H 05/24/20 14:05 Resp 16 05/24/20 14:05 BP 70/53 05/24/20 14:05 Pulse Ox 100 05/24/20 14:05 Intake & Output 05/23/20 05/24/20 05/24/20 18:59 06:59 18:59 Intake Total 1010.663 700.015 Output Total 200 600 Balance 810.663 100.015 Weight 61.235 kg 63.5 kg Intake: Intake, IV Titration 770.663 80.015 Amount Heparin Sod,Pork in 0.45% 70.663 80.015 NaCl 25,000 unit In 0.45 % NaCl 1 250ml.bag @ 12 UNITS/KG/HR 7.348 mls/hr IV .Q24H BRIAN Rx#: [id number] Sodium Chloride 0.9% 1, 200 000 ml @ 75 mls/hr IV . [id number] BRIAN Rx#:[id number] Sodium Chloride 0.9% 500 500 ml 500 ml @ 999 mls/hr IV .Q31M ONE Rx#:[id number] Oral 240 Blood Product 620 Rc As-1 Unit 310 [id number] Rc As-1 Unit 310 [id number] Output: Urine 200 600 Other: # Voids 0 2 # Bowel Movements 0 - Exam PHYSICAL EXAMINATION: GENERAL: The patient is alert and oriented x3, not in any acute distress. Well developed, well nourished. HEENT: Pupils are round and equally reacting to light. EOMI. No scleral icterus. He does have conjunctival pallor. Normocephalic, atraumatic. No pharyngeal erythema. No thyromegaly. CARDIOVASCULAR: S1 and S2 present. No rubs, or gallops. Mild sinus tachycardia, patient does have a ejection systolic murmur PULMONARY: Chest is clear to auscultation, no wheezing or crackles. ABDOMEN: Soft, nontender, nondistended, normoactive bowel sounds. No palpable organomegaly. MUSCULOSKELETAL: No joint swelling or deformity. EXTREMITIES: No cyanosis, clubbing, or pedal edema. NEUROLOGICAL: Gross neurological examination did not reveal any focal deficits. SKIN: No rashes. - Labs CBC & Chem 7: 05/24/20 13:55 05/24/20 05:53 Labs: Abnormal Lab Results - Last 24 Hours (Table) 05/23/20 05/23/20 05/23/20 Range/Units 17:32 21:05 21:20 WBC (3.8-10.6) k/uL RBC (4.30-5.90) m/uL Hgb (13.0-17.5) gm/dL Hct (39.0-53.0) % MCHC (31.0-37.0) g/dL RDW (11.5-15.5) % Plt Count (150-450) k/uL Neutrophils # (1.3-7.7) k/uL Retic Count (0.5-2.0) % APTT 41.7 H (22.0-30.0) sec Chloride (98-107) mmol/L BUN (9-20) mg/dL Glucose (74-99) mg/dL POC Glucose (mg/dL) 180 H (75-99) mg/dL Calcium (8.4-10.2) mg/dL Alkaline Phosphatase (38-126) U/L Troponin I 0.310 H* (0.000-0.034) ng/mL Total Protein (6.3-8.2) g/dL Albumin (3.5-5.0) g/dL Crossmatch 05/24/20 05/24/20 05/24/20 Range/Units 03:33 05:53 05:53 WBC (3.8-10.6) k/uL RBC (4.30-5.90) m/uL Hgb (13.0-17.5) gm/dL Hct (39.0-53.0) % MCHC (31.0-37.0) g/dL RDW (11.5-15.5) % Plt Count (150-450) k/uL Neutrophils # (1.3-7.7) k/uL Retic Count (0.5-2.0) % APTT 41.7 H (22.0-30.0) sec Chloride 113 H (98-107) mmol/L BUN 71 H (9-20) mg/dL Glucose 135 H (74-99) mg/dL POC Glucose (mg/dL) 203 H (75-99) mg/dL Calcium 8.0 L (8.4-10.2) mg/dL Alkaline Phosphatase 189 H (38-126) U/L Troponin I (0.000-0.034) ng/mL Total Protein 5.1 L (6.3-8.2) g/dL Albumin 2.5 L (3.5-5.0) g/dL Crossmatch 05/24/20 05/24/20 05/24/20 Range/Units 07:02 07:05 10:28 WBC 18.8 H (3.8-10.6) k/uL RBC 1.66 L (4.30-5.90) m/uL Hgb 5.0 L* D (13.0-17.5) gm/dL Hct 16.4 L* (39.0-53.0) % MCHC 30.4 L (31.0-37.0) g/dL RDW (11.5-15.5) % Plt Count (150-450) k/uL Neutrophils # (1.3-7.7) k/uL Retic Count (0.5-2.0) % APTT (22.0-30.0) sec Chloride (98-107) mmol/L BUN (9-20) mg/dL Glucose (74-99) mg/dL POC Glucose (mg/dL) 150 H (75-99) mg/dL Calcium (8.4-10.2) mg/dL Alkaline Phosphatase (38-126) U/L Troponin I (0.000-0.034) ng/mL Total Protein (6.3-8.2) g/dL Albumin (3.5-5.0) g/dL Crossmatch See Detail 05/24/20 Range/Units 13:55 WBC 18.0 H (3.8-10.6) k/uL RBC 2.77 L (4.30-5.90) m/uL Hgb 8.2 L D (13.0-17.5) gm/dL Hct 26.8 L (39.0-53.0) % MCHC 30.8 L (31.0-37.0) g/dL RDW 16.5 H (11.5-15.5) % Plt Count 144 L (150-450) k/uL Neutrophils # 14.8 H (1.3-7.7) k/uL Retic Count 2.6 H (0.5-2.0) % APTT (22.0-30.0) sec Chloride (98-107) mmol/L BUN (9-20) mg/dL Glucose (74-99) mg/dL POC Glucose (mg/dL) (75-99) mg/dL Calcium (8.4-10.2) mg/dL Alkaline Phosphatase (38-126) U/L Troponin I (0.000-0.034) ng/mL Total Protein (6.3-8.2) g/dL Albumin (3.5-5.0) g/dL Crossmatch Assessment and Plan Plan: -Hypotension: Secondary to severe hypovolemia, no evidence of sepsis at this time, leukocytosis is reactive in nature. For now we can use antibiotics if the cultures are negative by tomorrow and medics will be discontinued -Severe anemia no evidence of acute GI bleed no evidence of retroperitoneal bleed on the CAT scan. Patient may have a subacute or chronic GI bleed patient will undergo upper GI endoscopy tomorrow -History of hepatitis C leading to cirrhosis status post hepatic transplant and patient is on antiretroviral medications. -Type 2 non-ST elevation myocardial infarction IV heparin will be discontinued -Syncope: She and had multiple episodes last night -Palpitations: Secondary to hypovolemia and rebound from Cardizem and clonidine -History of liver transplant presently not on any suppressive therapy which was recently discontinued about 5 years ago -Hypovolemic hyponatremia expected to improve with IV fluids and repeat Copperas metabolic profile -Mild elevation of his enzymes which is a nonspecific elevation , repeat liver enzymes are within normal limits -Mild hyperkalemia secondary to hemolysis
[2020-05-24 17:39] LABS: Anisocytosis Slight; HCT 24.2 % (39.0-53.0); HGB 7.7 gm/dL (13.0-17.5); Hypochromasia Slight; MCH 29.9 pg (25.0-35.0); MCHC 31.8 g/dL (31.0-37.0); MCV 94.1 fL (80.0-100.0); Mean Platelet Volume 9.3; Platelet Count 145 k/uL (150-450); RBC 2.57 m/uL (4.30-5.90); RDW 17.2 % (11.5-15.5); WBC 21.6 k/uL (3.8-10.6)
[2020-05-24] MEDS: PIPERACILLIN-TAZOBACTAM 3.375 GM in SODIUM CHLORIDE 0.9% 100 ML IVPB SCH (18:23)
--- NOTE | 2020-05-24 21:43 | P.CONS ---
History of Present Illness - Reason for Consult Consult date: 05/24/20 Abnormal Labs: Anemia, Leukocytosis Requesting physician: Carlos Price - Chief Complaint Syncope, weakness, palpitations - History of Present Illness Mr. Barlow is a plesant male patient with known history of liver transplant, over 30 years ago. He denies lifelong alcohol or tobacco use. He states he is up to date in all of his preventative care and follows regularly with his intermediate designer out of [facility] and his Veterinary Toxicologist Dr. Khan. He has not been on anti-rejection medications in the past 6 years. He states three days ago he was swimming and enjoying the family at the bunkie, he resides in [place]. He presented to the hospital after two days of not feeling well. He stated it started with nausea and vomiting, weakness, near syncopal episodes. On admission his WBC were elevated at 13, mostly neutrophils. Hemoglobin 10.1, potassium mildly elevated and BUn increased. He was tachycardic in the 130s and hypotensive. He had a syncopal episode on admission as well. He denies ever having anemia, blood transfusions (except during surgical procedure), denies history of blood clots, cancer, or abnormal heart rhythm. initial increase in troponins and He was placed on a heparin drip on admission during cardiac work- up, this has since been stopped. Repeat CBC noted hemoglobin of 5, PRBC was ordered. Because of his severe drop in hemoglobin hematology has been asked to further evaluate. He denies any evidence of blood recent or previously. He is currently in ICU for close monitoring, he is accompanied by his nephew. He has remained afebrile since admission. Review of Systems All systems: negative (hpi) Past Medical History Past Medical History: Liver Disease Additional Past Medical History / Comment(s): liver transplant History of Any Multi-Drug Resistant Organisms: None Reported Additional Past Surgical History / Comment(s): liver transplant 1988 Past Anesthesia/Blood Transfusion Reactions: No Reported Reaction Past Psychological History: No Psychological Hx Reported Smoking Status: Never smoker Past Alcohol Use History: None Reported Past Drug Use History: None Reported Medications and Allergies Home Medications Medication Instructions Recorded Confirmed Type Acetaminophen Tab [Tylenol Tab] 1,000 mg PO Q6HR PRN 05/23/20 05/23/20 History Allopurinol [Zyloprim] 100 mg PO DAILY 05/23/20 05/23/20 History Diltiazem Oral [Cardizem Oral] 30 mg PO BID 05/23/20 05/23/20 History Multivitamins, Thera [Multivitamin 1 tab PO DAILY 05/23/20 05/23/20 History (formulary)] Tenofovir Alafenamide Fumarate 25 mg PO DAILY 05/23/20 05/23/20 History [Vemlidy] Ursodiol [Moisés] 250 mg PO TID 05/23/20 05/23/20 History cloNIDine HCL [Catapres] 0.1 mg PO BID 05/23/20 05/23/20 History Allergies Allergy/AdvReac Type Severity Reaction Status Date / Time No Known Allergies Allergy Verified 05/23/20 11:47 Physical Exam Vitals: Vital Signs Temp Pulse Pulse Resp BP BP Pulse Ox 05/24/20 11:54 98.4 F 120 H 16 81/60 100 05/24/20 10:26 98.4 F 120 H 16 91/55 100 05/24/20 09:56 97.6 F 114 H 16 97/65 100 05/24/20 09:46 97.8 F 114 H 16 83/53 100 05/24/20 08:00 98.1 F 114 H 16 90/60 100 05/24/20 04:00 98.4 F 95 18 93/62 98 05/23/20 23:49 98.8 F 95 18 90/60 97 05/23/20 23:44 90 16 05/23/20 22:30 80/55 05/23/20 22:00 100 75/48 05/23/20 21:15 110 H 77/48 05/23/20 21:00 110 H 75/41 05/23/20 20:00 120 H 16 05/23/20 15:46 97.8 F 111 H 16 116/64 99 05/23/20 15:12 98 F 103 H 14 101/70 100 05/23/20 14:00 107 H 14 107/67 100 Intake and Output 05/23/20 05/24/20 05/24/20 22:59 06:59 14:59 Intake Total 70.663 940 390.015 Output Total 200 600 Balance 70.663 740 -209.985 Intake: Intake, IV Titration 70.663 700 80.015 Amount Heparin Sod,Pork in 0.45% 70.663 80.015 NaCl 25,000 unit In 0.45 % NaCl 1 250ml.bag @ 12 UNITS/KG/HR 7.348 mls/hr IV .Q24H BRIAN Rx#: [id number] Sodium Chloride 0.9% 1, 200 000 ml @ 75 mls/hr IV . [id number] BRIAN Rx#:[id number] Sodium Chloride 0.9% 500 500 ml 500 ml @ 999 mls/hr IV .Q31M ONE Rx#:[id number] Oral 0 240 Blood Product 310 Rc As-1 Unit 0 [id number] Rc As-1 Unit 310 [id number] Output: Urine 200 600 Other: # Voids 0 2 # Bowel Movements 0 Weight 63.5 kg - Constitutional General appearance: average body habitus, cooperative, disheveled - EENT Eyes: EOMI, PERRLA - Neck Neck: normal ROM Carotids: bilateral: upstroke normal Thyroid: bilateral: normal size - Respiratory Respiratory: bilateral: CTA - Cardiovascular Rhythm: regular Heart sounds: normal: S1, S2 - Gastrointestinal General gastrointestinal: decreased bowel sounds, soft - Integumentary Integumentary: normal turgor - Neurologic Neurologic: CNII-XII intact - Musculoskeletal Musculoskeletal: gait normal, generalized weakness, strength equal bilaterally - Psychiatric Psychiatric: A&O x's 3, appropriate affect, intact judgment & insight Results CBC & Chem 7: 05/24/20 17:13 05/24/20 05:53 Labs: Abnormal Lab Results - Last 24 Hours (Table) 05/23/20 05/23/20 05/23/20 Range/Units 14:19 17:32 21:05 WBC (3.8-10.6) k/uL RBC (4.30-5.90) m/uL Hgb (13.0-17.5) gm/dL Hct (39.0-53.0) % MCHC (31.0-37.0) g/dL APTT (22.0-30.0) sec Chloride (98-107) mmol/L BUN (9-20) mg/dL Glucose (74-99) mg/dL POC Glucose (mg/dL) 180 H (75-99) mg/dL Calcium (8.4-10.2) mg/dL Alkaline Phosphatase (38-126) U/L Troponin I 0.336 H* 0.310 H* (0.000-0.034) ng/mL Total Protein (6.3-8.2) g/dL Albumin (3.5-5.0) g/dL Crossmatch 05/23/20 05/24/20 05/24/20 Range/Units 21:20 03:33 05:53 WBC (3.8-10.6) k/uL RBC (4.30-5.90) m/uL Hgb (13.0-17.5) gm/dL Hct (39.0-53.0) % MCHC (31.0-37.0) g/dL APTT 41.7 H (22.0-30.0) sec Chloride 113 H (98-107) mmol/L BUN 71 H (9-20) mg/dL Glucose 135 H (74-99) mg/dL POC Glucose (mg/dL) 203 H (75-99) mg/dL Calcium 8.0 L (8.4-10.2) mg/dL Alkaline Phosphatase 189 H (38-126) U/L Troponin I (0.000-0.034) ng/mL Total Protein 5.1 L (6.3-8.2) g/dL Albumin 2.5 L (3.5-5.0) g/dL Crossmatch 05/24/20 05/24/20 05/24/20 Range/Units 05:53 07:02 07:05 WBC 18.8 H (3.8-10.6) k/uL RBC 1.66 L (4.30-5.90) m/uL Hgb 5.0 L* D (13.0-17.5) gm/dL Hct 16.4 L* (39.0-53.0) % MCHC 30.4 L (31.0-37.0) g/dL APTT 41.7 H (22.0-30.0) sec Chloride (98-107) mmol/L BUN (9-20) mg/dL Glucose (74-99) mg/dL POC Glucose (mg/dL) (75-99) mg/dL Calcium (8.4-10.2) mg/dL Alkaline Phosphatase (38-126) U/L Troponin I (0.000-0.034) ng/mL Total Protein (6.3-8.2) g/dL Albumin (3.5-5.0) g/dL Crossmatch See Detail 05/24/20 Range/Units 10:28 WBC (3.8-10.6) k/uL RBC (4.30-5.90) m/uL Hgb (13.0-17.5) gm/dL Hct (39.0-53.0) % MCHC (31.0-37.0) g/dL APTT (22.0-30.0) sec Chloride (98-107) mmol/L BUN (9-20) mg/dL Glucose (74-99) mg/dL POC Glucose (mg/dL) 150 H (75-99) mg/dL Calcium (8.4-10.2) mg/dL Alkaline Phosphatase (38-126) U/L Troponin I (0.000-0.034) ng/mL Total Protein (6.3-8.2) g/dL Albumin (3.5-5.0) g/dL Crossmatch Chest x-ray: report reviewed CT scan - abdomen: report reviewed CT scan - pelvis: report reviewed Assessment and Plan Plan: Assessment and Recommendations: Leukocytosis: - Likely a reactive increase, mostly neutrophils - Hirsch cultures Near Syncopal Episode: - Severe symptomatic anemia Normocytic anemia: - A drop of 50% after heparin drip was initiated, although no sign of bleeding - Status post 2 units of PRBC - Full anemia work-up ordered - Transfuse less than 7 - Review of abdominal imaging failed to show evidence of bleeding Will await further work-up Hold AC, NSAIDs, Asa while monitoring serial H and H Thank you for allowing us to participate in the care of this patient we will follow along with you.
[2020-05-24 22:52] LABS: Anisocytosis Slight; HCT 20.5 % (39.0-53.0); Hypochromasia Slight; MCH 30.6 pg (25.0-35.0); MCHC 32.7 g/dL (31.0-37.0); MCV 93.5 fL (80.0-100.0); Mean Platelet Volume 9.4; Platelet Count 140 k/uL (150-450); RDW 17.4 % (11.5-15.5)
[2020-05-24 23:02] LABS: HGB 6.7 gm/dL (13.0-17.5)
[2020-05-24] MEDS: VANCOMYCIN 1,250 MG in SODIUM CHLORIDE 0.9% 250 ML IVPB SCH (23:56)
[2020-05-25] MEDS: SODIUM CHLORIDE 0.9% 1,000 ML IV SCH ×3 (00:04→18:07)
[2020-05-25 01:08] LABS: % Iron Saturation 78.51 (15.00-50.00); Ferritin 344.8 ng/mL (22.0-322.0)
[2020-05-25] MEDS: PIPERACILLIN-TAZOBACTAM 3.375 GM in SODIUM CHLORIDE 0.9% 100 ML IVPB SCH ×2 (02:13→09:06)
--- NOTE | 2020-05-25 02:36 | CONS ---
CONSULTATION DATE OF DICTATION: 05/24/2020 REASON FOR CONSULTATION: Severe symptomatic anemia. HISTORY OF PRESENT ILLNESS: The patient is a 70-year-old pleasant white male with history of chronic hepatitis B infection diagnosed several years ago, status post liver transplantation at [facility] done in 1988 and follows at [facility]. The patient was admitted to the hospital because of severe symptomatic anemia, fatigue, weakness, and some shortness of breath. He was noted to have a hemoglobin of 5 g/dL requiring 2 units of PRBC transfusion and today hemoglobin is 7.7 g/dL. We are consulted in regard to this issue. The patient denies any GI bleed. He reports no nausea, vomiting, abdominal pain, diarrhea or constipation or rectal bleeding. He did notice some dark colored stools for the last 2 days. No prior history of peptic ulcer disease. The patient had multiple upper endoscopies as well as ERCP done at [facility] because of recurrent biliary stricture. His last colonoscopy was several years ago. PAST MEDICAL HISTORY: Significant for chronic liver disease with cirrhosis secondary to hepatitis B infection, status post liver transplant in [address] [facility], history of hypertension. PAST SURGICAL HISTORY: Liver transplantation 1988, multiple ERCPs for biliary stricture. SOCIAL HISTORY: No smoking. No alcohol use. FAMILY HISTORY: Unremarkable. MEDICATIONS: Medications at home include ursodiol, Zyloprim, Tylenol, multivitamin, Cardizem, and Catapres. ALLERGIES: None. REVIEW OF SYSTEMS: CARDIOPULMONARY: He denies any chest pain or shortness of breath. GENITOURINARY: No dysuria or hematuria. MUSCULOSKELETAL: Unremarkable. SKIN: Unremarkable. ENDOCRINE: Unremarkable. NEUROLOGY: Unremarkable. GI: As mentioned above. CONSTITUTIONAL: No recent weight loss. No fever, chills, night sweats. PHYSICAL EXAMINATION: He appears comfortable. No apparent distress. Vital signs are stable. Blood pressure is 94/54, pulse rate 111, temperature 98.4. HEENT EXAMINATION: Unremarkable. Conjunctivae pink. Sclerae anicteric. Oral cavity, no lesions NECK: No JVD or lymph node enlargement. CHEST: Clear to auscultation. HEART: Regular rate and rhythm. ABDOMEN: Soft. It was nontender. Multiple scars noted. EXTREMITIES: No pedal edema. NEURO: He is alert and oriented x3. No focal deficits. LABS: WBC 18.8, hemoglobin 5, platelets 187, MCV 98. AST, ALT, T bilirubin and alkaline phosphatase are within normal limits. BUN 76, creatinine 1.06. Labs from today hemoglobin is 7.7, WBC 21.6, platelet count 145. Sed rate 25 and Retic count 2.6. PT, INR is within normal limits. IMPRESSION: 1. Severe symptomatic anemia with a hemoglobin of 5 g/dL. Clinically no evidence of active ongoing bleeding. His labs indicate elevated BUN suggestive of possible upper gastrointestinal source of bleeding and patient did notice some dark colored stools for the last 2 days duration. 2. History of orthotopic liver transplant in 1988 for history of chronic hepatitis B infection and cirrhosis of the liver in [facility], [facility] 3. History of biliary stricture post liver transplant requiring multiple ERCPs. CT of the abdomen did show evidence of intrahepatic biliary ductal dilation and some prominence within the chantel hepatis. 4. Chronic hepatitis B infection on . 5. History of hypertension. RECOMMENDATIONS: 1. Agree with PRBC transfusion. 2. Continue with Protonix 40 mg daily. 3. Monitor CBC on a daily basis. 4. We will proceed with an upper endoscopy tomorrow. I discussed with the patient risks, benefits and complications. He is agreeable to it. Thank you for this consultation. MMODL / IJN: [id number] /
[2020-05-25] MEDS: ONDANSETRON 4 MG/2 ML VIAL IVP PRN (03:38)
[2020-05-25 04:52] LABS: Anisocytosis Slight; Basophils % (A) 0 %; Eosinophils # (A) 0.1 k/uL (0-0.7); Eosinophils % (A) 1 %; HCT 24.4 % (39.0-53.0); HGB 7.8 gm/dL (13.0-17.5); Hypochromasia Slight; Lymphocytes # (A) 1.4 k/uL (1.0-4.8); Lymphocytes % (A) 12 %; MCH 29.7 pg (25.0-35.0); MCHC 31.8 g/dL (31.0-37.0); MCV 93.5 fL (80.0-100.0); Mean Platelet Volume 8.7; Monocytes # (A) 0.7 k/uL (0-1.0); Monocytes % (A) 6 %; Neutrophils # (A) 9.3 k/uL (1.3-7.7); Neutrophils % (A) 79 %; RBC 2.61 m/uL (4.30-5.90); RDW 17.4 % (11.5-15.5); WBC 11.7 k/uL (3.8-10.6)
[2020-05-25 05:03] LABS: Albumin 2.4 g/dL (3.5-5.0); Calcium 7.8 mg/dL (8.4-10.2); Potassium 4.2 mmol/L (3.5-5.1); Total Bilirubin 0.7 mg/dL (0.2-1.3); Total Protein 4.9 g/dL (6.3-8.2)
[2020-05-25 05:50] LABS: Polychromasia Present
[2020-05-25 05:52] LABS: Platelet Count 81 k/uL (150-450)
[2020-05-25] MEDS: TENOFOVIR ALAFENAMIDE FUMARATE PO SCH ×2 (06:48→11:35)
[2020-05-25] MEDS ORDERED: LIDOCAINE 1% INJ 10MG/ML (20 ML MDV) ONE (07:09)
[2020-05-25] MEDS ORDERED: PROPOFOL 10 MG/ML 20 ML VIAL IV ONE (07:09)
[2020-05-25] MEDS ORDERED: IV FLUID CONTINUATION 1,000 ML IV ONE (07:09)
--- NOTE | 2020-05-25 08:06 | P.PCN ---
Date of Procedure: 05/25/20 Procedure(s) Performed: BRIEF HISTORY: Patient is a 70-year-old, pleasant, white male with history of chronic hepatitis B infection/doses was a status post liver transplantation in 1988.. He follows at [facility]. He was admitted hospital with severe symptomatic anemia and hemoglobin of 5 g/dL requiring 3 units of blood transfusion. No active GI bleed. He was recently told has cirrhosis in the transplanted liver a few weeks ago. He is scheduled for an upper endoscopy to rule out upper GI source of PROCEDURE PERFORMED: Esophagogastroduodenoscopy. PREOPERATIVE DIAGNOSIS: Severe symptomatic anemia and hemoglobin of 5 g/dL. IV sedation per anesthesia. PROCEDURE: After informed consent was obtained, the patient was brought into the endoscopy unit. IV sedation was administered by Anesthesia under continuous monitoring. Initially the Olympus GIF-140 video endoscope was inserted into the mouth. Esophagus intubated without any difficulty. It was gradually advanced into the stomach and duodenum and carefully examined. The bulb and the second part of the duodenum appeared normal. The scope at this time was withdrawn to the stomach, adequately insufflated with air, and upon careful examination, mucosa of the antrum, appeared normal. There were changes of mild portal hypertensive gastropathy involving the body, cardia and the fundus . The scope was then withdrawn into the esophagus. The GE junction was located at 39 cm from the incisors. There was small nonbleeding distal esophageal varices noted. The esophagus appeared normal. There were no erosions or ulcerations seen and the patient tolerated the procedure well. IMPRESSION: 1. Small nonbleeding distal esophageal varices. 2. Mild portal hypertensive gastropathy. RECOMMENDATIONS: The findings of this examination were discussed with the patient. He'll be started on clear liquid diet. We will discuss about colonoscopy tomorrow. Monitor CBC on a daily basis..
[2020-05-25 08:25] LABS: Free Kappa Lt Chain Qnt, Serum 5.42 mg/dL (0.33-1.94); Immunoglobulin M 75.1 mg/dL (40.0-280.0)
[2020-05-25] MEDS: MAG HYDROX/AL HYDROX/SIMETH 30 ML CUP PO PRN ×2 (09:01→23:57)
[2020-05-25] MEDS: LACTATED RINGERS 1,000 ML IV SCH ×2 (09:01→18:06)
[2020-05-25] MEDS: PANTOPRAZOLE 40 MG/10 ML VIAL IVP SCH ×2 (09:03→21:03)
--- NOTE | 2020-05-25 11:01 | P.PN ---
Subjective Progress Note Date: 05/25/20 Principal diagnosis: Palpitations, anemia, syncope This is a pleasant 70-year-old male past medical history significant for liver transplant, cholelithiasis status post multiple ERCPs, and hypertension. He is not followed with anyone in the office in approximately 10 years. We have been asked to see in consultation for elevated troponin. Patient menses been doing well up until yesterday. Yesterday he had acute onset of palpitations and some shortness breath. He admits his palpitations would be worse after he exerted himself and would feel like a pounding in the chest. Denies any chest pain, pressure or tightness. He does admit to occasional shortness breath with this. He had been fairly active before this with routine swimming and outdoor activities. He did undergo liver transplant approximately 20 years ago and has been doing well with this. He had complications with multiple ERCPs a few years back however has done relatively well. He denies prior history of anemia however his hemoglobin was noted to be mildly low. Denies any hematochezia or melena. No prior cardiac history, no history of murmur per patient, no palpitations prior to the one day ago. While in the emergency department he apparently had an episode of syncope with drop in his blood pressure in the 70s and apparently heart rate of 50s. Patient admits to 1 prior episode of syncope around the time of complications from his liver transplant however routinely does not feel lightheaded and no history of other syncope. His troponins were noted to be mildly elevated and patient was placed on a heparin drip. 05/25/2020 Since admission, patient has been found to have profound anemia and heparin drip was stopped. He had echocardiogram which showed ejection fraction 65% with concern of hypertrophic cardiomyopathy with Lonnie and LVOT obstruction with a peak gradient of 86. His interventricular septum was measured at 1.5 cm however appears to be predominantly concentric hypertrophy. He states his only family history of cardiac disease is a myocarditis of his father and aortopathy and some siblings. He has received 3 units packed red blood cell transfusion. He underwent EGD this morning which showed varices however no acute bleed and is planned for colonoscopy tomorrow. REVIEW OF SYSTEMS At the time of my exam: CONSTITUTIONAL: Denies fever or chills. CARDIOVASCULAR: Denies chest pain, + intermittent shortness of breath, no orthopnea, PND, + palpitations. RESPIRATORY: Denies cough. GASTROINTESTINAL: Denies abdominal pain, diarrhea, constipation, nausea or vomiting. MUSCULOSKELETAL: Denies myalgias. NEUROLOGIC: Denies numbness, tingling or weakness. ENDOCRINE: Denies fatigue, weight change, polydipsia or polyurina. GENITOURINARY: Denies burning, hematuria or urgency with micturation. PHYSICAL EXAMINATION Blood pressure 114/73 heart rate 105 febrile and maintaining oxygen saturation on 2 L nasal cannula. CONSTITUTIONAL: No apparent distress. HEENT: Head is normocephalic. Pupils are equal, round. Sclerae anicteric. Mucous membranes of the mouth are moist. No JVD. No carotid bruit. CHEST EXAMINATION: Lungs are clear to auscultation. No chest wall tenderness is noted on palpation or with deep breathing. HEART EXAMINATION: Tachycardic rate and regular rhythm. S1, S2 heard. + 2/6 systolic murmur, no gallops or rub. ABDOMEN: Soft, nontender. Positive bowel sounds. EXTREMITIES: 2+ peripheral pulses, no lower extremity edema and no calf tenderness. NEUROLOGIC EXAMINATION: Patient is awake, alert and oriented x3. ASSESSMENT 1. Syncope, likely related to anemia, hypotension with component of LVOT obstruction 2. Elevated troponin of unclear significance. Likely type II mechanism from severe anemia with hemoglobin down to 5, no current angina 3. LVOT obstruction with gradient of 86 mmHg with evidence of LONNIE on echo, concern of hypertrophic cardiomyopathy however appears concentric hypertrophy with interventricular septum of 1.5 cm 4. Essential hypertension, on home clonidine and diltiazem, borderline hypotensive secondary to anemia 5. Sinus tachycardia which is reactive 6. Palpitations related to sinus tachycardia, no evidence of atrial fibrillation or arrhythmia 7. History of liver transplant 8. Severe anemia, no obvious bleeding per patient. Undergoing GI workup as well as hematology workup PLAN Elevated troponins appear likely related to hypotension and anemia. Does not appear to be type I mechanism and we will defer any anticoagulation or antiplatelets at this time given concern of GI bleed. Continue to monitor hemoglobin, transfuse as needed and your GI and hematology workup. Discussed findings of LVOT obstruction with LONNIE and mitral regurgitation on echo concerning for hypertrophic cardiomyopathy. Does not appear to be typical intraventricular septum hypertrophy and more concentric. Patient would likely benefit from outpatient cardiac MRI and possible genotyping for further workup. Objective - Vital Signs Vital signs: Vital Signs Temp 98.5 F 08/19/20 07:45 Pulse 99 05/25/20 09:30 Resp 14 05/25/20 09:30 BP 115/80 05/25/20 09:30 Pulse Ox 98 05/25/20 09:30 Intake & Output 05/24/20 05/25/20 05/25/20 18:59 06:59 18:59 Intake Total 0931.384 1324 525 Output Total 1200 900 300 Balance 446.801 8578 225 Weight 66 kg Intake: IV 1725 525 Piperacillin-Tazobactam 3 100 100 .375 gm In Sodium Chloride 0.9% 100 ml @ 25 mls/hr IVPB Q8HR [facility] Rx# :[id number] Sodium Chloride 0.9% 1, 1375 375 000 ml @ 125 mls/hr IV . Q8H [facility] Rx#:[id number] Vancomycin 1,250 mg In 250 Sodium Chloride 0.9% 250 ml @ 125 mls/hr IVPB Q12H [facility] Rx#:[id number] Intake, IV Titration 1055.015 125 Amount Heparin Sod,Pork in 0.45% 80.015 NaCl 25,000 unit In 0.45 % NaCl 1 250ml.bag @ 12 UNITS/KG/HR 7.348 mls/hr IV .Q24H [facility] Rx#: [id number] Piperacillin-Tazobactam 3 100 .375 gm In Sodium Chloride 0.9% 100 ml @ 25 mls/hr IVPB Q8HR [facility] Rx# :[id number] Sodium Chloride 0.9% 1, 625 125 000 ml @ 125 mls/hr IV . Q8H [facility] Rx#:[id number] Vancomycin 1,250 mg In 250 Sodium Chloride 0.9% 250 ml @ 125 mls/hr IVPB Q12H [facility] Rx#:[id number] Blood Product 620 310 Rc As-1 Unit 310 [id number] Rc As-1 Unit 310 [id number] Rc As-1 Unit 310 [id number] Output: Urine 1200 900 300 Other: Voiding Method Urinal Urinal - Labs CBC & Chem 7: 05/25/20 04:01 05/25/20 04:01 Labs: Abnormal Lab Results - Last 24 Hours (Table) 05/24/20 05/24/20 05/24/20 Range/Units 05:53 07:05 13:55 WBC 18.0 H (3.8-10.6) k/uL RBC 2.77 L (4.30-5.90) m/uL Hgb 8.2 L D (13.0-17.5) gm/dL Hct 26.8 L (39.0-53.0) % MCHC 30.8 L (31.0-37.0) g/dL RDW 16.5 H (11.5-15.5) % Plt Count 144 L (150-450) k/uL Neutrophils # 14.8 H (1.3-7.7) k/uL ESR (0-15) mm/hr Retic Count 2.6 H (0.5-2.0) % Chloride (98-107) mmol/L Carbon Dioxide (22-30) mmol/L BUN (9-20) mg/dL Glucose (74-99) mg/dL Calcium (8.4-10.2) mg/dL Iron (65-175) ug/dL % Saturation (15.00-50.00) Ferritin (22.0-322.0) ng/mL AST (17-59) U/L ALT (4-49) U/L Alkaline Phosphatase (38-126) U/L Total Protein (6.3-8.2) g/dL Total Protein (PEP) 5.0 L (6.2-8.2) g/dL Albumin (3.5-5.0) g/dL IgG 1730.0 H (700.0-1600.0) mg/dL IgA 373.0 H (60.0-350.0) mg/dL Free [place] LC, Quant 5.42 H (0.33-1.94) mg/dL Free [place] LC, Quant 3.35 H (0.57-2.63) mg/dL Crossmatch See Detail 05/24/20 05/24/20 05/24/20 Range/Units 13:55 17:13 17:13 WBC 21.6 H (3.8-10.6) k/uL RBC 2.57 L (4.30-5.90) m/uL Hgb 7.7 L (13.0-17.5) gm/dL Hct 24.2 L (39.0-53.0) % MCHC (31.0-37.0) g/dL RDW 17.2 H (11.5-15.5) % Plt Count 145 L (150-450) k/uL Neutrophils # (1.3-7.7) k/uL ESR 25 H (0-15) mm/hr Retic Count (0.5-2.0) % Chloride (98-107) mmol/L Carbon Dioxide (22-30) mmol/L BUN (9-20) mg/dL Glucose (74-99) mg/dL Calcium (8.4-10.2) mg/dL Iron 179 H (65-175) ug/dL % Saturation 78.51 H (15.00-50.00) Ferritin 344.8 H (22.0-322.0) ng/mL AST (17-59) U/L ALT (4-49) U/L Alkaline Phosphatase (38-126) U/L Total Protein (6.3-8.2) g/dL Total Protein (PEP) (6.2-8.2) g/dL Albumin (3.5-5.0) g/dL IgG (700.0-1600.0) mg/dL IgA (60.0-350.0) mg/dL Free [place] LC, Quant (0.33-1.94) mg/dL Free Lambda LC, Quant (0.57-2.63) mg/dL Crossmatch 05/24/20 05/25/20 05/25/20 Range/Units 22:39 04:01 04:01 WBC 17.0 H 11.7 H (3.8-10.6) k/uL RBC 2.20 L 2.61 L (4.30-5.90) m/uL Hgb 6.7 L* 7.8 L (13.0-17.5) gm/dL Hct 20.5 L 24.4 L (39.0-53.0) % MCHC (31.0-37.0) g/dL RDW 17.4 H 17.4 H (11.5-15.5) % Plt Count 140 L 81 L (150-450) k/uL Neutrophils # 9.3 H (1.3-7.7) k/uL ESR (0-15) mm/hr Retic Count (0.5-2.0) % Chloride 116 H (98-107) mmol/L Carbon Dioxide 17 L (22-30) mmol/L BUN 51 H (9-20) mg/dL Glucose 116 H (74-99) mg/dL Calcium 7.8 L (8.4-10.2) mg/dL Iron (65-175) ug/dL % Saturation (15.00-50.00) Ferritin (22.0-322.0) ng/mL AST 64 H (17-59) U/L ALT 72 H (4-49) U/L Alkaline Phosphatase 170 H (38-126) U/L Total Protein 4.9 L (6.3-8.2) g/dL Total Protein (PEP) (6.2-8.2) g/dL Albumin 2.4 L (3.5-5.0) g/dL IgG (700.0-1600.0) mg/dL IgA (60.0-350.0) mg/dL Free [place] LC, Quant (0.33-1.94) mg/dL Free Lambda LC, Quant (0.57-2.63) mg/dL Crossmatch
[2020-05-25] MEDS: ursodioL 300 MG CAP PO SCH ×3 (11:31→21:03)
[2020-05-25] MEDS: VANCOMYCIN 1,250 MG in SODIUM CHLORIDE 0.9% 250 ML IVPB SCH (11:32)
[2020-05-25 11:45] LABS: Anisocytosis Slight; HCT 27.3 % (39.0-53.0); HGB 8.7 gm/dL (13.0-17.5); Hypochromasia Slight; MCH 29.7 pg (25.0-35.0); MCV 92.7 fL (80.0-100.0); Mean Platelet Volume 9.1; RBC 2.94 m/uL (4.30-5.90); RDW 17.6 % (11.5-15.5); WBC 10.4 k/uL (3.8-10.6)
[2020-05-25 11:46] LABS: Platelet Count 84 k/uL (150-450)
[2020-05-25 12:39] LABS: Hepatitis A Antibody IgM Non-Reactive (Non-Reactive); Hepatitis B Core IgM Non-Reactive (Non-Reactive); Hepatitis C IgG Antibody Non-Reactive (Non-Reactive)
[2020-05-25 12:39] LABS: Partial Thromboplastin Time 24.1 sec (22.0-30.0); Prothrombin Time 10.1 sec (9.0-12.0)
--- NOTE | 2020-05-25 13:35 | CDI ---
Documentation Clarification Form Date: 05/25/2020 01:15:44 PM From: Adrienne Hall RN, CCDS Admit Date: 05/23/2020 01:34:00 PM Patient Name: Krishan Villar Visit Number: [id number] ATTENTION: The Clinical Documentation Specialists (CDI) and [facility] Coding Staff appreciate your assistance in clarifying documentation. Please respond to the clarification below the line at the bottom and electronically sign. The CDI & [facility] Coding staff will review the response and follow-up if needed. Please note: Queries are made part of the Legal Health Record. If you have any questions, please contact the author of this message via ITS. Dr. Daisy Julien Anemia is documented in the consults and progress notes and requires further specificity. . History/Risk Factors: NSTEMI, Syncope, Dehydration, Liver transplant hx, Hypovolemic shock, Clinical indicators: 05/25 Cardiology Progress note: "Syncope, likely related to anemia, hypotension with component of LVOT obstruction Likely type II mechanism from severe anemia with hemoglobin down to 5, no current angina Essential hypertension, on home clonidine and diltiazem, borderline hypotensive secondary to anemia Severe anemia, no obvious bleeding per patient." 05/25 EGD: Severe symptomatic anemia and hemoglobin of 5 g/dL. Small nonbleeding distal esophageal varices. 2. Mild portal hypertensive gastropathy. 05/23-05/25 Hemoglobin: 10.1/5/8.2/7.7/6.7 05/23-05/25 Hematocrit:31.6/16.4/26.8/24.2/20.5 Treatment: 3 units PRBC's transfused 05/23 2.5L 0.9% NS IVF Bolus 05/24 250 cc IVF bolus 0.9% NS In order to capture the severity of condition, please clarify the type of anemia and etiology if known:. Chronic blood loss anemia Iron deficiency anemia Anemia due to malignancy Nutritional anemia Anemia of chronic disease Unable to determine Other, please specify (Last Form Revision: December 2019) Unable to determine MTDD
--- NOTE | 2020-05-25 13:42 | P.PN ---
Subjective Progress Note Date: 05/25/20 Principal diagnosis: symptomatic anemia Platelets have decreased 86K, hemoglobin fell below 7 again and required PRBC transfusion. Dr. Mcclure seen and evaluated patient today. Objective - Vital Signs Vital signs: Vital Signs Temp 98.5 F 05/25/20 07:45 Pulse 108 H 05/25/20 11:00 Resp 14 05/25/20 11:00 BP 123/76 05/25/20 11:00 Pulse Ox 98 05/25/20 11:00 Intake & Output 05/24/20 05/25/20 05/25/20 18:59 06:59 18:59 Intake Total 3251.138 0657 775 Output Total 1200 900 650 Balance 178.147 7803 125 Weight 66 kg Intake: IV 1725 775 Piperacillin-Tazobactam 3 100 100 .375 gm In Sodium Chloride 0.9% 100 ml @ 25 mls/hr IVPB Q8HR [facility] Rx# :[id number] Sodium Chloride 0.9% 1, 1375 625 000 ml @ 125 mls/hr IV . Q8H [facility] Rx#:[id number] Vancomycin 1,250 mg In 250 Sodium Chloride 0.9% 250 ml @ 125 mls/hr IVPB Q12H [facility] Rx#:[id number] Intake, IV Titration 1055.015 125 Amount Heparin Sod,Pork in 0.45% 80.015 NaCl 25,000 unit In 0.45 % NaCl 1 250ml.bag @ 12 UNITS/KG/HR 7.348 mls/hr IV .Q24H [facility] Rx#: [id number] Piperacillin-Tazobactam 3 100 .375 gm In Sodium Chloride 0.9% 100 ml @ 25 mls/hr IVPB Q8HR [facility] Rx# :[id number] Sodium Chloride 0.9% 1, 625 125 000 ml @ 125 mls/hr IV . Q8H [facility] Rx#:[id number] Vancomycin 1,250 mg In 250 Sodium Chloride 0.9% 250 ml @ 125 mls/hr IVPB Q12H [facility] Rx#:[id number] Blood Product 620 310 Rc As-1 Unit 310 [id number] Rc As-1 Unit 310 [id number] Rc As-1 Unit 310 [id number] Output: Urine 1200 900 650 Other: Voiding Method Urinal Urinal - Exam - Constitutional General appearance: average body habitus, cooperative, disheveled - EENT Eyes: EOMI, PERRLA - Neck Neck: normal ROM Carotids: bilateral: upstroke normal Thyroid: bilateral: normal size - Respiratory Respiratory: bilateral: CTA - Cardiovascular Rhythm: regular Heart sounds: normal: S1, S2 - Gastrointestinal General gastrointestinal: decreased bowel sounds, soft - Integumentary Integumentary: normal turgor - Neurologic Neurologic: CNII-XII intact - Musculoskeletal Musculoskeletal: gait normal, generalized weakness, strength equal bilaterally - Psychiatric Psychiatric: A&O x's 3, appropriate affect, intact judgment & insight - Labs CBC & Chem 7: 05/25/20 11:26 05/25/20 04:01 Labs: Abnormal Lab Results - Last 24 Hours (Table) 05/24/20 05/24/20 05/24/20 Range/Units 05:53 07:05 13:55 WBC 18.0 H (3.8-10.6) k/uL RBC 2.77 L (4.30-5.90) m/uL Hgb 8.2 L D (13.0-17.5) gm/dL Hct 26.8 L (39.0-53.0) % MCHC 30.8 L (31.0-37.0) g/dL RDW 16.5 H (11.5-15.5) % Plt Count 144 L (150-450) k/uL Neutrophils # 14.8 H (1.3-7.7) k/uL ESR (0-15) mm/hr Retic Count 2.6 H (0.5-2.0) % Chloride (98-107) mmol/L Carbon Dioxide (22-30) mmol/L BUN (9-20) mg/dL Glucose (74-99) mg/dL Calcium (8.4-10.2) mg/dL Iron (65-175) ug/dL % Saturation (15.00-50.00) Ferritin (22.0-322.0) ng/mL AST (17-59) U/L ALT (4-49) U/L Alkaline Phosphatase (38-126) U/L Total Protein (6.3-8.2) g/dL Total Protein (PEP) 5.0 L (6.2-8.2) g/dL Albumin (3.5-5.0) g/dL IgG 1730.0 H (700.0-1600.0) mg/dL IgA 373.0 H (60.0-350.0) mg/dL Free [place] LC, Quant 5.42 H (0.33-1.94) mg/dL Free Lambda LC, Quant 3.35 H (0.57-2.63) mg/dL Crossmatch See Detail 05/24/20 05/24/20 05/24/20 Range/Units 13:55 17:13 17:13 WBC 21.6 H (3.8-10.6) k/uL RBC 2.57 L (4.30-5.90) m/uL Hgb 7.7 L (13.0-17.5) gm/dL Hct 24.2 L (39.0-53.0) % MCHC (31.0-37.0) g/dL RDW 17.2 H (11.5-15.5) % Plt Count 145 L (150-450) k/uL Neutrophils # (1.3-7.7) k/uL ESR 25 H (0-15) mm/hr Retic Count (0.5-2.0) % Chloride (98-107) mmol/L Carbon Dioxide (22-30) mmol/L BUN (9-20) mg/dL Glucose (74-99) mg/dL Calcium (8.4-10.2) mg/dL Iron 179 H (65-175) ug/dL % Saturation 78.51 H (15.00-50.00) Ferritin 344.8 H (22.0-322.0) ng/mL AST (17-59) U/L ALT (4-49) U/L Alkaline Phosphatase (38-126) U/L Total Protein (6.3-8.2) g/dL Total Protein (PEP) (6.2-8.2) g/dL Albumin (3.5-5.0) g/dL IgG (700.0-1600.0) mg/dL IgA (60.0-350.0) mg/dL Free [place] LC, Quant (0.33-1.94) mg/dL Free Lambda LC, Quant (0.57-2.63) mg/dL Crossmatch 05/24/20 05/25/2005/25/20 Range/Units 22:39 04:01 04:01 WBC 17.0 H 11.7 H (3.8-10.6) k/uL RBC 2.20 L 2.61 L (4.30-5.90) m/uL Hgb 6.7 L* 7.8 L (13.0-17.5) gm/dL Hct 20.5 L 24.4 L (39.0-53.0) % MCHC (31.0-37.0) g/dL RDW 17.4 H 17.4 H (11.5-15.5) % Plt Count 140 L 81 L (150-450) k/uL Neutrophils # 9.3 H (1.3-7.7) k/uL ESR (0-15) mm/hr Retic Count (0.5-2.0) % Chloride 116 H (98-107) mmol/L Carbon Dioxide 17 L (22-30) mmol/L BUN 51 H (9-20) mg/dL Glucose 116 H (74-99) mg/dL Calcium 7.8 L (8.4-10.2) mg/dL Iron (65-175) ug/dL % Saturation (15.00-50.00) Ferritin (22.0-322.0) ng/mL AST 64 H (17-59) U/L ALT 72 H (4-49) U/L Alkaline Phosphatase 170 H (38-126) U/L Total Protein 4.9 L (6.3-8.2) g/dL Total Protein (PEP) (6.2-8.2) g/dL Albumin 2.4 L (3.5-5.0) g/dL IgG (700.0-1600.0) mg/dL IgA (60.0-350.0) mg/dL Free [place] LC, Quant (0.33-1.94) mg/dL Free Lambda LC, Quant (0.57-2.63) mg/dL Crossmatch 05/25/20 Range/Units 11:26 WBC (3.8-10.6) k/uL RBC 2.94 L (4.30-5.90) m/uL Hgb 8.7 L (13.0-17.5) gm/dL Hct 27.3 L (39.0-53.0) % MCHC (31.0-37.0) g/dL RDW 17.6 H (11.5-15.5) % Plt Count 84 L (150-450) k/uL Neutrophils # (1.3-7.7) k/uL ESR (0-15) mm/hr Retic Count (0.5-2.0) % Chloride (98-107) mmol/L Carbon Dioxide (22-30) mmol/L BUN (9-20) mg/dL Glucose (74-99) mg/dL Calcium (8.4-10.2) mg/dL Iron (65-175) ug/dL % Saturation (15.00-50.00) Ferritin (22.0-322.0) ng/mL AST (17-59) U/L ALT (4-49) U/L Alkaline Phosphatase (38-126) U/L Total Protein (6.3-8.2) g/dL Total Protein (PEP) (6.2-8.2) g/dL Albumin (3.5-5.0) g/dL IgG (700.0-1600.0) mg/dL IgA (60.0-350.0) mg/dL Free [place] LC, Quant (0.33-1.94) mg/dL Free Lambda LC, Quant (0.57-2.63) mg/dL Crossmatch Assessment and Plan Plan: Assessment and Recommendations: Leukocytosis: - Likely a reactive increase, mostly neutrophils - Hirsch cultures Near Syncopal Episode: - Severe symptomatic anemia Normocytic anemia: - A drop of 50% after heparin drip was initiated, although no sign of bleeding - Status post 2 units of PRBC - Full anemia work-up ordered - Transfuse less than 7 - Review of abdominal imaging failed to show evidence of bleeding - Status Post GI eval - non-bleeding varices noted. Thrombocytopenia: - Patient has dropped platelet count by greater than half since admission - Heparin was introduced early and platelet drop since this time as well as decreased hemoglobin - Status post GI evaluation did note esophageal varices, although not bleeding at that time. - Platelet decrease secondary to bleeding, less likely from heparin antibodies as its unclear if outside facility he received heparin. - Also note medication and infection as probable contributor, continue monitor daily cbc Will await further work-up Hold AC, NSAIDs, Asa while monitoring serial H and H Physician Attest: I have completed the full history and physical and agree with above dictation, dictated as a scribe.
--- NOTE | 2020-05-25 14:35 | P.PN ---
Subjective Patient came in with compensative palpitations and the shortness of breath on exertion denied any orthopnea proximal nocturnal dyspnea. Patient denied any chest pain. Patient had nausea vomiting. Patient had mildly elevated troponin of around 0.2 the second one is around 0.3 because of which patient is being admitted for possible non-ST elevation microinfarction check EKG showed sinus tachycardia without any significant abnormality. Patient does have history of liver transplant patient was on immunosuppressive therapy and to 5 years ago, h is weight is up as if therapy was discussed uterine years ago. Patient always is on Cardizem and clonidine for blood pressure Ativan for heart rate patient is hypotensive here in the hospital and patient had a syncopal episode secondary to hypotension. Patient is bit hyponatremic with mild acute renal failure I do not have any orthostatic vitals available which will be ordered. Patient was star brandy on IV fluids and given boluses and patient will be continued on normal saline at 100 mL per hour. Patient did complain of generalized abdominal discomfort with no obvious pain 05/24/2020 Patient had prompt with a hemoglobin to 5 from 10. His hemoglobin in the past was around 12. Patient became hypotensive and received more boluses of IV fluids was subsequently transferred to ICU patient was having syncopes from this as well. Discussed with [facility] transplant pain and do [facility] believe [facility] patient had multiple ERCPs in the past. Patient continues to be on IV fluids IV heparin was discontinued as patient myocardial infarction is secondary to type II NSTEMI which is again secondary to anemia. Gastroenterology evaluated the patient patient will undergo upper GI endoscopy. Because of patient's hypotension and leukocytosis patient is being evaluated for sepsis with blood cultures although I do not have any clear source of sepsis patient was started on broad-spectrum Zosyn and vancomycin vancomycin will be discontinued and Zosyn will be continued for now patient had a CAT scan of the abdomen which showed mild colitis patient is not requiring any pressors at this time 05/25/2020 Patient had an upper GI endoscopy today which showed significant varices which were not bleeding and also some gastritis. Patient will undergo colonoscopy tomorrow. Patient lightheadedness improved patient remains tachycardic with a bit. Patient's hemoglobin remained stable and is 8.7 it was 7.8 yesterday patient received one more unit of PRBC transfusion after that still evidence of acute GI bleed.. Constitutional: Denied any fatigue denied any fever. Cardio vascular: denied any chest pain, palpitations Gastrointestinal denied any nausea vomiting Pulmonary: Denied any shortness of breath cough Neurologic denied any new focal deficits All inpatient medications were reviewed and appropriate changes in these medications as dictated in the interval history and assessment and plan. Objective - Vital Signs Vital signs: Vital Signs Temp 98.5 F 05/25/20 07:45 Pulse 108 H 05/25/20 11:00 Resp 14 05/25/20 11:00 BP 123/76 05/25/20 11:00 Pulse Ox 98 05/25/20 11:00 Intake & Output 05/24/20 05/25/20 05/25/20 18:59 06:59 18:59 Intake Total 9287.286 3875 1400 Output Total 1200 900 850 Balance 397.445 8667 550 Weight 66 kg Intake: IV 1725 1400 Piperacillin-Tazobactam 3 100 100 .375 gm In Sodium Chloride 0.9% 100 ml @ 25 mls/hr IVPB Q8HR [facility] Rx# :[id number] Sodium Chloride 0.9% 1, 1375 1000 000 ml @ 125 mls/hr IV . Q8H [facility]AN Rx#:[id number] Vancomycin 1,250 mg In 250 250 Sodium Chloride 0.9% 250 ml @ 125 mls/hr IVPB Q12H [facility] Rx#:[id number] Intake, IV Titration 1055.015 125 Amount Heparin Sod,Pork in 0.45% 80.015 NaCl 25,000 unit In 0.45 % NaCl 1 250ml.bag @ 12 UNITS/KG/HR 7.348 mls/hr IV .Q24H BRIAN Rx#: [id number] Piperacillin-Tazobactam 3 100 .375 gm In Sodium Chloride 0.9% 100 ml @ 25 mls/hr IVPB Q8HR B[facility]AN Rx# :[id number] Sodium Chloride 0.9% 1, 625 125 000 ml @ 125 mls/hr IV . Q8H [facility]AN Rx#:[id number] Vancomycin 1,250 mg In 250 Sodium Chloride 0.9% 250 ml @ 125 mls/hr IVPB Q12H [facility] Rx#:[id number] Blood Product 620 310 Rc As-1 Unit 310 [id number] Rc As-1 Unit 310 [id number] Rc As-1 Unit 310 [id number] Output: Urine 1200 900 850 Other: Voiding Method Urinal Urinal # Bowel Movements 1 - Exam PHYSICAL EXAMINATION: GENERAL: The patient is alert and oriented x3, not in any acute distress. Well developed, well nourished. HEENT: Pupils are round and equally reacting to light. EOMI. No scleral icterus. He does have conjunctival pallor. Normocephalic, atraumatic. No pharyngeal erythema. No thyromegaly. CARDIOVASCULAR: S1 and S2 present. No rubs, or gallops. Mild sinus tachycardia, patient does have a ejection systolic murmur PULMONARY: Chest is clear to auscultation, no wheezing or crackles. ABDOMEN: Soft, nontender, nondistended, normoactive bowel sounds. No palpable organomegaly. MUSCULOSKELETAL: No joint swelling or deformity. EXTREMITIES: No cyanosis, clubbing, or pedal edema. NEUROLOGICAL: Gross neurological examination did not reveal any focal deficits. SKIN: No rashes. - Labs CBC & Chem 7: 05/25/20 11:26 05/25/20 04:01 Labs: Abnormal Lab Results - Last 24 Hours (Table) 05/24/20 05/24/20 05/24/20 Range/Units 05:53 07:05 13:55 WBC 18.0 H (3.8-10.6) k/uL RBC 2.77 L (4.30-5.90) m/uL Hgb 8.2 L D (13.0-17.5) gm/dL Hct 26.8 L (39.0-53.0) % MCHC 30.8 L (31.0-37.0) g/dL RDW 16.5 H (11.5-15.5) % Plt Count 144 L (150-450) k/uL Neutrophils # 14.8 H (1.3-7.7) k/uL ESR (0-15) mm/hr Retic Count 2.6 H (0.5-2.0) % Chloride (98-107) mmol/L Carbon Dioxide (22-30) mmol/L BUN (9-20) mg/dL Glucose (74-99) mg/dL Calcium (8.4-10.2) mg/dL Iron (65-175) ug/dL % Saturation (15.00-50.00) Ferritin (22.0-322.0) ng/mL AST (17-59) U/L ALT (4-49) U/L Alkaline Phosphatase (38-126) U/L Total Protein (6.3-8.2) g/dL Total Protein (PEP) 5.0 L (6.2-8.2) g/dL Albumin (3.5-5.0) g/dL IgG 1730.0 H (700.0-1600.0) mg/dL IgA 373.0 H (60.0-350.0) mg/dL Free Griffith LC, Quant 5.42 H (0.33-1.94) mg/dL Free Lambda LC, Quant 3.35 H (0.57-2.63) mg/dL Crossmatch See Detail 05/24/20 05/24/20 05/24/20 Range/Units 13:55 17:13 17:13 WBC 21.6 H (3.8-10.6) k/uL RBC 2.57 L (4.30-5.90) m/uL Hgb 7.7 L (13.0-17.5) gm/dL Hct 24.2 L (39.0-53.0) % MCHC (31.0-37.0) g/dL RDW 17.2 H (11.5-15.5) % Plt Count 145 L (150-450) k/uL Neutrophils # (1.3-7.7) k/uL ESR 25 H (0-15) mm/hr Retic Count (0.5-2.0) % Chloride (98-107) mmol/L Carbon Dioxide (22-30) mmol/L BUN (9-20) mg/dL Glucose (74-99) mg/dL Calcium (8.4-10.2) mg/dL Iron 179 H (65-175) ug/dL % Saturation 78.51 H (15.00-50.00) Ferritin 344.8 H (22.0-322.0) ng/mL AST (17-59) U/L ALT (4-49) U/L Alkaline Phosphatase (38-126) U/L Total Protein (6.3-8.2) g/dL Total Protein (PEP) (6.2-8.2) g/dL Albumin (3.5-5.0) g/dL IgG (700.0-1600.0) mg/dL IgA (60.0-350.0) mg/dL Free Griffith LC, Quant (0.33-1.94) mg/dL Free Lambda LC, Quant (0.57-2.63) mg/dL Crossmatch 05/24/20 05/25/20 05/25/20 Range/Units 22:39 04:01 04:01 WBC 17.0 H 11.7 H (3.8-10.6) k/uL RBC 2.20 L 2.61 L (4.30-5.90) m/uL Hgb 6.7 L* 7.8 L (13.0-17.5) gm/dL Hct 20.5 L 24.4 L (39.0-53.0) % MCHC (31.0-37.0) g/dL RDW 17.4 H 17.4 H (11.5-15.5) % Plt Count 140 L 81 L (150-450) k/uL Neutrophils # 9.3 H (1.3-7.7) k/uL ESR (0-15) mm/hr Retic Count (0.5-2.0) % Chloride 116 H (98-107) mmol/L Carbon Dioxide 17 L (22-30) mmol/L BUN 51 H (9-20) mg/dL Glucose 116 H (74-99) mg/dL Calcium 7.8 L (8.4-10.2) mg/dL Iron (65-175) ug/dL % Saturation (15.00-50.00) Ferritin (22.0-322.0) ng/mL AST 64 H (17-59) U/L ALT 72 H (4-49) U/L Alkaline Phosphatase 170 H (38-126) U/L Total Protein 4.9 L (6.3-8.2) g/dL Total Protein (PEP) (6.2-8.2) g/dL Albumin 2.4 L (3.5-5.0) g/dL IgG (700.0-1600.0) mg/dL IgA (60.0-350.0) mg/dL Free Griffith LC, Quant (0.33-1.94) mg/dL Free Lambda LC, Quant (0.57-2.63) mg/dL Crossmatch 05/25/20 Range/Units 11:26 WBC (3.8-10.6) k/uL RBC 2.94 L (4.30-5.90) m/uL Hgb 8.7 L (13.0-17.5) gm/dL Hct 27.3 L (39.0-53.0) % MCHC (31.0-37.0) g/dL RDW 17.6 H (11.5-15.5) % Plt Count 84 L (150-450) k/uL Neutrophils # (1.3-7.7) k/uL ESR (0-15) mm/hr Retic Count (0.5-2.0) % Chloride (98-107) mmol/L Carbon Dioxide (22-30) mmol/L BUN (9-20) mg/dL Glucose (74-99) mg/dL Calcium (8.4-10.2) mg/dL Iron (65-175) ug/dL % Saturation (15.00-50.00) Ferritin (22.0-322.0) ng/mL AST (17-59) U/L ALT (4-49) U/L Alkaline Phosphatase (38-126) U/L Total Protein (6.3-8.2) g/dL Total Protein (PEP) (6.2-8.2) g/dL Albumin (3.5-5.0) g/dL IgG (700.0-1600.0) mg/dL IgA (60.0-350.0) mg/dL Free Griffith LC, Quant (0.33-1.94) mg/dL Free Lambda LC, Quant (0.57-2.63) mg/dL Crossmatch Assessment and Plan Plan: -Hypotension: Secondary to severe hypovolemia, no evidence of sepsis at this time, leukocytosis is reactive in nature. Leukocytosis resolved antibiotics were discontinued -Severe anemia no evidence of acute GI bleed no evidence of retroperitoneal bleed on the CAT scan. Patient may have a subacute or chronic GI bleed from varices which was seen on upper GI endoscopy. Patient will undergo colonoscopy tomorrow -History of hepatitis C leading to cirrhosis status post hepatic transplant and patient is on antiretroviral medications. -Type 2 non-ST elevation myocardial infarction IV heparin will be discontinued -Syncope: No more syncopal episodes and syncope secondary to anemia, hypovolemia with probably a competent of the left ventricular outflow tract obstruction -Palpitations: Secondary to hypovolemia and rebound from Cardizem and clonidine -History of liver transplant presently not on any suppressive therapy which was recently discontinued about 5 years ago -Hypovolemic hyponatremia improved with IV fluid -Mild elevation of his enzymes which is a nonspecific elevation , repeat liver enzymes are within normal limits -Mild hyperkalemia resolved
[2020-05-25 14:37] LABS: Hepatitis B Surface Antigen Reactive (Non-Reactive)
[2020-05-25 15:32] LABS: Albumin 2.66 g/dL (3.80-4.90); Gamma Globulin 0.98 g/dL (0.70-1.50)
[2020-05-25] MEDS ORDERED: PEG 3350-NA SULF,BICARB,CL/KCL 4,000 ML BOTTLE PO ONE (17:00)
[2020-05-26 04:59] LABS: Anisocytosis Slight; HCT 22.4 % (39.0-53.0); HGB 7.3 gm/dL (13.0-17.5); MCH 30.1 pg (25.0-35.0); MCHC 32.7 g/dL (31.0-37.0); MCV 92.1 fL (80.0-100.0); Mean Platelet Volume 9.6; RBC 2.43 m/uL (4.30-5.90); RDW 18.3 % (11.5-15.5)
[2020-05-26 05:05] LABS: Platelet Count 79 k/uL (150-450)
[2020-05-26 05:08] LABS: African American GFR (CKD) >90 (>60 ml/min/1.73 sqM); Anion Gap 4 mmol/L; Blood Urea Nitrogen 20 mg/dL (9-20); Calcium 7.5 mg/dL (8.4-10.2); Carbon Dioxide 24 mmol/L (22-30); Chloride 107 mmol/L (98-107); Glucose 114 mg/dL (74-99); Non-African American GFR(CKD) 85 (>60 ml/min/1.73 sqM); Potassium 3.6 mmol/L (3.5-5.1); Sodium 135 mmol/L (137-145)
[2020-05-26] MEDS ORDERED: Potassium Replacement Protocol 1 EACH MISC MISCELLANE PRN (05:18)
[2020-05-26] MEDS: POTASSIUM CHLORIDE 10 MEQ in WATER FOR INJECTION 1 100ML.BAG IVPB SCH ×2 (05:29→06:43)
[2020-05-26] MEDS: SODIUM CHLORIDE 0.9% 1,000 ML IV SCH ×4 (05:31→23:39)
[2020-05-26] MEDS: TENOFOVIR ALAFENAMIDE FUMARATE PO SCH (06:47)
--- NOTE | 2020-05-26 08:29 | P.PN ---
Subjective Progress Note Date: 05/26/20 Principal diagnosis: Syncope This is a pleasant 70-year-old male past medical history significant for liver transplant, cholelithiasis status post multiple ERCPs, and hypertension. He is not followed with anyone in the office in approximately 10 years. We have been asked to see in consultation for elevated troponin. Patient menses been doing well up until yesterday. Yesterday he had acute onset of palpitations and some shortness breath. He admits his palpitations would be worse after he exerted himself and would feel like a pounding in the chest. Denies any chest pain, pressure or tightness. He does admit to occasional shortness breath with this. He had been fairly active before this with routine swimming and outdoor activities. He did undergo liver transplant approximately 20 years ago and has been doing well with this. He had complications with multiple ERCPs a few years back however has done relatively well. He denies prior history of anemia however his hemoglobin was noted to be mildly low. Denies any hematochezia or melena. No prior cardiac history, no history of murmur per patient, no palpitations prior to the one day ago. While in the emergency department he apparently had an episode of syncope with drop in his blood pressure in the 70s and apparently heart rate of 50s. Patient admits to 1 prior episode of syncope around the time of complications from his liver transplant however routinely does not feel lightheaded and no history of other syncope. His troponins were noted to be mildly elevated and patient was placed on a heparin drip. 05/25/2020 Since admission, patient has been found to have profound anemia and heparin drip was stopped. He had echocardiogram which showed ejection fraction 65% with concern of hypertrophic cardiomyopathy with Lonnie and LVOT obstruction with a peak gradient of 86. His interventricular septum was measured at 1.5 cm however appears to be predominantly concentric hypertrophy. He states his only family history of cardiac disease is a myocarditis of his father and aortopathy and some siblings. He has received 3 units packed red blood cell transfusion. He underwent EGD this morning which showed varices however no acute bleed and is planned for colonoscopy tomorrow. 05/26/2020 Patient underwent EGD yesterday and scheduled for colonoscopy today. Underwent bowel prep and admits to some darkened robson stools however no bright red blood. Denies any chest pain or pressure. Palpitations appear improved. No shortness breath. Mild swelling around his left IV site likely related to inc reased IV fluids through the site. REVIEW OF SYSTEMS At the time of my exam: CONSTITUTIONAL: Denies fever or chills. CARDIOVASCULAR: Denies chest pain, + intermittent shortness of breath, no orthopnea, PND, + palpitations. RESPIRATORY: Denies cough. GASTROINTESTINAL: Denies abdominal pain, diarrhea, constipation, nausea or vomiting. MUSCULOSKELETAL: Denies myalgias. NEUROLOGIC: Denies numbness, tingling or weakness. ENDOCRINE: Denies fatigue, weight change, polydipsia or polyurina. GENITOURINARY: Denies burning, hematuria or urgency with micturation. PHYSICAL EXAMINATION Blood pressure 123/77 heart rate 98 febrile and maintaining oxygen saturation on 2 L nasal cannula. CONSTITUTIONAL: No apparent distress. HEENT: Head is normocephalic. Pupils are equal, round. Sclerae anicteric. Mucous membranes of the mouth are moist. No JVD. No carotid bruit. CHEST EXAMINATION: Lungs are clear to auscultation. No chest wall tenderness is noted on palpation or with deep breathing. HEART EXAMINATION: Tachycardic rate and regular rhythm. S1, S2 heard. + 2/6 systolic murmur, no gallops or rub. ABDOMEN: Soft, nontender. Positive bowel sounds. EXTREMITIES: 2+ peripheral pulses, no lower extremity edema and no calf tenderness. NEUROLOGIC EXAMINATION: Patient is awake, alert and oriented x3. ASSESSMENT 1. Syncope, likely related to anemia, hypotension with component of LVOT obstruction 2. Elevated troponin of unclear significance. Likely type II mechanism from severe anemia with hemoglobin down to 5, no current angina 3. LVOT obstruction with gradient of 86 mmHg with evidence of LONNIE on echo, concern of hypertrophic cardiomyopathy however appears concentric hypertrophy with interventricular septum of 1.5 cm 4. Essential hypertension, on home clonidine and diltiazem, borderline hypotensive secondary to anemia 5. Sinus tachycardia which is reactive 6. Palpitations related to sinus tachycardia, no evidence of atrial fibrillation or arrhythmia 7. History of liver transplant 8. Severe anemia, no obvious bleeding per patient. Undergoing GI workup as well as hematology workup PLAN Do not suspect a type I mechanism for his elevated troponins. Patient has not been having angina and would monitor and follow-up outpatient. May consider outpatient stress test if hemoglobin stabilizes. Undergoing colonoscopy today. Continue to monitor hemoglobin and transfuse as needed. In hemoglobin to 7.2 today, likely component of dilutional effect. Continue to monitor. Discussed findings of LVOT obstruction with LONNIE and mitral regurgitation on echo concerning for hypertrophic cardiomyopathy. Does not appear to be typical intraventricular septum hypertrophy and more concentric. Patient would likely benefit from outpatient cardiac MRI and possible genotyping for further workup. Objective - Vital Signs Vital signs: Vital Signs Temp 98.8 F 05/26/20 04:00 Pulse 98 05/26/20 07:00 Resp 19 05/26/20 07:00 BP 112/74 05/26/20 07:00 Pulse Ox 96 05/26/20 07:00 Intake & Output 05/25/20 05/26/20 05/26/20 18:59 06:59 18:59 Intake Total 1900 1600 225 Output Total 850 Balance 1050 1600 225 Weight 68.2 kg Intake: IV 1900 1600 225 Piperacillin-Tazobactam 3 100 .375 gm In Sodium Chloride 0.9% 100 ml @ 25 mls/hr IVPB Q8HR [facility] Rx# :[id number] Potassium Chloride 10 meq 100 100 In Water For Injection 1 100ml.bag @ 100 mls/hr IVPB Q1H [facility] Rx#: [id number] Sodium Chloride 0.9% 1, 1500 1500 125 000 ml @ 125 mls/hr IV . Q8H [facility] Rx#:[id number] Vancomycin 1,250 mg In 250 Sodium Chloride 0.9% 250 ml @ 125 mls/hr IVPB Q12H [facility] Rx#:[id number] Output: Urine 850 Other: Voiding Method Urinal Urinal # Voids 1 # Bowel Movements 1 2 - Labs CBC & Chem 7: 05/26/20 04:42 05/26/20 04:42 Labs: Abnormal Lab Results - Last 24 Hours (Table) 05/24/20 05/24/20 05/25/20 Range/Units 05:53 05:53 04:01 RBC (4.30-5.90) m/uL Hgb (13.0-17.5) gm/dL Hct (39.0-53.0) % RDW (11.5-15.5) % Plt Count (150-450) k/uL Sodium (137-145) mmol/L Glucose (74-99) mg/dL Calcium (8.4-10.2) mg/dL Albumin (PEP) 2.66 L (3.80-4.90) g/dL [id number] 0.46 L (0.60-1.00) g/dL Methylmalonic Acid 0.70 H (<0.40) umol/L Free [place] LC, Quant 5.42 H (0.33-1.94) mg/dL Hep Bs Antigen Reactive H (Non-Reactive) 05/25/20 05/26/20 05/26/20 Range/Units 11:26 04:42 04:42 RBC 2.94 L 2.43 L (4.30-5.90) m/uL Hgb 8.7 L 7.3 L (13.0-17.5) gm/dL Hct 27.3 L 22.4 L (39.0-53.0) % RDW 17.6 H 18.3 H (11.5-15.5) % Plt Count 84 L 79 L (150-450) k/uL Sodium 135 L (137-145) mmol/L Glucose 114 H (74-99) mg/dL Calcium 7.5 L (8.4-10.2) mg/dL Albumin (PEP) (3.80-4.90) g/dL [id number] (0.60-1.00) g/dL Methylmalonic Acid (<0.40) umol/L Free [place] LC, Quant (0.33-1.94) mg/dL Hep Bs Antigen (Non-Reactive) Microbiology - Last 24 Hours (Table) 05/24/20 12:28 Blood Culture - Preliminary Blood No Growth after 24 hours
[2020-05-26] MEDS: ursodioL 300 MG CAP PO SCH ×3 (08:47→20:42)
[2020-05-26] MEDS: LACTATED RINGERS 1,000 ML IV SCH ×3 (08:47→23:36)
[2020-05-26] MEDS: PANTOPRAZOLE 40 MG/10 ML VIAL IVP SCH ×2 (08:47→20:42)
[2020-05-26] MEDS: CYANOCOBALAMIN 1,000 MCG/ML 1 ML VIAL IM SCH (10:25)
[2020-05-26] MEDS: SODIUM FERRIC GLUCONAT-SUCROSE 125 MG in SODIUM CHLORIDE 0.9% 100 ML IVPB SCH (10:25)
[2020-05-26] MEDS ORDERED: VANCOMYCIN TROUGH DUE 1 EACH MISC MISCELLANE ONE (11:00)
[2020-05-26] MEDS ORDERED: fentaNYL (PF) 50 MCG/ML 2 ML AMP ONE (12:50)
[2020-05-26] MEDS ORDERED: PROPOFOL 10 MG/ML 20 ML VIAL IV ONE (12:50)
[2020-05-26] MEDS ORDERED: MIDAZOLAM 2 MG/2 ML VIAL ONE (12:50)
[2020-05-26] MEDS ORDERED: IV FLUID CONTINUATION 500 ML IV ONE (12:52)
--- NOTE | 2020-05-26 12:58 | XR ---
EXAMINATION TYPE: XR chest 1V DATE OF EXAM: 05/26/2020 COMPARISON: NONE HISTORY: Crackles TECHNIQUE: Single frontal view of the chest is obtained. FINDINGS: There is a tiny right pleural effusion with subsegmental consolidation. Left lung clear. H eart size normal. No overt failure. No pneumothorax. IMPRESSION: 1. Tiny right pleural effusion.
--- NOTE | 2020-05-26 13:15 | P.PCN ---
Date of Procedure: 05/26/20 Procedure(s) Performed: BRIEF HISTORY: Patient is a 70-year-old pleasant male scheduled for an elective colonoscopy as a part of evaluation of severe symptomatic anemia and hemoglobin of 5 requiring 3 units of blood transfusion. No active GI bleed. He underwent an upper endoscopy yesterday that showed small esophageal varices and mild gastropathy. He scheduled for colonoscopy to evaluate further. He has prior history of liver transplant for chronic hepatitis B infection in 1988. PROCEDURE PERFORMED: Colonoscopy with biopsy and snare polypectomy. PREOPERATIVE DIAGNOSIS: Severe symptomatic anemia and a negative upper endoscopy yesterday. IV sedation per Anesthesia. PROCEDURE: After informed consent was obtained, the patient, was brought into the endoscopy unit. IV sedation was administered by Anesthesia under continuous monitoring. Digital rectal examination was normal. Initially the Olympus CF-160 flexible video colonoscope was then inserted in the rectum, gradually advanced into the cecum without any difficulty. Careful examination was performed as the scope was gradually being withdrawn. Ileocecal valve and the appendiceal orifice were visualized and appeared normal. Prep was excellent. Mucosa of the cecum, ascending colon appeared normal. In the transverse colon there was a 3 mm polyp that was removed by cold biopsy. Rest of, transverse colon, descending colon, sigmoid colon, and rectum appeared normal. In the rectum there was a 5 minute a polyp removed by snare polypectomy Retroflexion was performed in the rectum and weight 2 internal were seen. The patient tolerated the procedure well. IMPRESSION: 3 mm transverse colon polyp status post biopsy 5 mm rectal polyp status post polypectomy Grade 2 internal hemorrhoids RECOMMENDATIONS: Findings of this examination were discussed with the patient as well as his family. Diet can be advanced as tolerated. Will await biopsy results. Will discuss with the patient regarding small bowel capsule endoscopy to evaluate further..
--- NOTE | 2020-05-26 13:29 | P.PN ---
Subjective Patient came in with compensative palpitations and the shortness of breath on exertion denied any orthopnea proximal nocturnal dyspnea. Patient denied any chest pain. Patient had nausea vomiting. Patient had mildly elevated troponin of around 0.2 the second one is around 0.3 because of which patient is being admitted for possible non-ST elevation microinfarction check EKG showed sinus tachycardia without any significant abnormality. Patient does have history of liver transplant patient was on immunosuppressive therapy and to 5 years ago, h is weight is up as if therapy was discussed uterine years ago. Patient always is on Cardizem and clonidine for blood pressure Ativan for heart rate patient is hypotensive here in the hospital and patient had a syncopal episode secondary to hypotension. Patient is bit hyponatremic with mild acute renal failure I do not have any orthostatic vitals available which will be ordered. Patient was star brandy on IV fluids and given boluses and patient will be continued on normal saline at 100 mL per hour. Patient did complain of generalized abdominal discomfort with no obvious pain 05/24/2020 Patient had prompt with a hemoglobin to 5 from 10. His hemoglobin in the past was around 12. Patient became hypotensive and received more boluses of IV fluids was subsequently transferred to ICU patient was having syncopes from this as well. Discussed with [facility] pain and [facility] patient had multiple ERCPs in the past. Patient continues to be on IV fluids IV heparin was discontinued as patient myocardial infarction is secondary to type II NSTEMI which is again secondary to anemia. Gastroenterology evaluated the patient patient will undergo upper GI endoscopy. Because of patient's hypotension and leukocytosis patient is being evaluated for sepsis with blood cultures although I do not have any clear source of sepsis patient was started on broad-spectrum Zosyn and vancomycin vancomycin will be discontinued and Zosyn will be continued for now patient had a CAT scan of the abdomen which showed mild colitis patient is not requiring any pressors at this time 05/25/2020 Patient had an upper GI endoscopy today which showed significant varices which were not bleeding and also some gastritis. Patient will undergo colonoscopy tomorrow. Patient lightheadedness improved patient remains tachycardic with a bit. Patient's hemoglobin remained stable and is 8.7 it was 7.8 yesterday patient received one more unit of PRBC transfusion after that still evidence of acute GI bleed.. 05/26/2020 Patient's hemoglobin is 7.2 today probably due to hemodilution from IV fluids were started on IV fluids patient does have some crackles on lung exam probably secondary to atelectasis will obtain a chest x-ray, to make sure there is no pulmonary edema. Patient chest x-ray showed tiny right pleural effusion. Patient did undergo colonoscopy which showed grade 2 hemorrhoids in couple polyps. Patient will transfer out of ICU possibly of discharge tomorrow Constitutional: Denied any fatigue denied any fever. Cardio vascular: denied any chest pain, palpitations Gastrointestinal denied any nausea vomiting Pulmonary: Denied any shortness of breath cough Neurologic denied any new focal deficits All inpatient medications were reviewed and appropriate changes in these medications as dictated in the interval history and assessment and plan. Objective - Vital Signs Vital signs: Vital Signs Temp 98.1 F 05/26/20 12:00 Pulse 98 05/26/20 12:00 Resp 22 05/26/20 12:00 BP 124/80 05/26/20 12:00 Pulse Ox 98 05/26/20 12:00 Intake & Output 05/25/20 05/26/20 05/26/20 18:59 06:59 18:59 Intake Total 1900 1600 1475 Output Total 850 1 Balance 1050 1600 1474 Weight 68.2 kg Intake: IV 1900 1600 925 Piperacillin-Tazobactam 3 100 .375 gm In Sodium Chloride 0.9% 100 ml @ 25 mls/hr IVPB Q8HR [facility] Rx# :[id number] Potassium Chloride 10 meq 100 100 In Water For Injection 1 100ml.bag @ 100 mls/hr IVPB Q1H [facility] Rx#: [id number] Sodium Chloride 0.9% 1, 1500 1500 525 000 ml @ 75 mls/hr IV . [id number] [facility] Rx#:[id number] Sodium Ferric Gluconat- 100 Sucrose 125 mg In Sodium Chloride 0.9% 100 ml @ 100 mls/hr IVPB DAILY [facility] Rx#:[id number] Vancomycin 1,250 mg In 250 Sodium Chloride 0.9% 250 ml @ 125 mls/hr IVPB Q12H [facility] Rx#:[id number] Oral 550 Output: Urine 850 Urine/Stool Mix 1 Other: Voiding Method Urinal Urinal # Voids 1 1 # Bowel Movements 1 2 3 - Exam PHYSICAL EXAMINATION: GENERAL: The patient is alert and oriented x3, not in any acute distress. Well developed, well nourished. HEENT: Pupils are round and equally reacting to light. EOMI. No scleral icterus. He does have conjunctival pallor. Normocephalic, atraumatic. No pharyngeal erythema. No thyromegaly. CARDIOVASCULAR: S1 and S2 present. No rubs, or gallops. Mild sinus tachycardia, patient does have a ejection systolic murmur PULMONARY: Chest is clear to auscultation, no wheezing or crackles. ABDOMEN: Soft, nontender, nondistended, normoactive bowel sounds. No palpable organomegaly. MUSCULOSKELETAL: No joint swelling or deformity. EXTREMITIES: No cyanosis, clubbing, or pedal edema. NEUROLOGICAL: Gross neurological examination did not reveal any focal deficits. SKIN: No rashes. - Labs CBC & Chem 7: 05/26/20 04:42 05/26/20 11:21 Labs: Abnormal Lab Results - Last 24 Hours (Table) 05/24/20 05/24/20 05/25/20 Range/Units 05:53 05:53 04:01 RBC (4.30-5.90) m/uL Hgb (13.0-17.5) gm/dL Hct (39.0-53.0) % RDW (11.5-15.5) % Plt Count (150-450) k/uL Sodium (137-145) mmol/L Glucose (74-99) mg/dL Calcium (8.4-10.2) mg/dL Albumin (PEP) 2.66 L (3.80-4.90) g/dL Qrlvo-8-Ljppfhrqi 0.46 L (0.60-1.00) g/dL Methylmalonic Acid 0.70 H (<0.40) umol/L Hep Bs Antigen Reactive H (Non-Reactive) 05/26/20 05/26/20 Range/Units 04:42 04:42 RBC 2.43 L (4.30-5.90) m/uL Hgb 7.3 L (13.0-17.5) gm/dL Hct 22.4 L (39.0-53.0) % RDW 18.3 H (11.5-15.5) % Plt Count 79 L (150-450) k/uL Sodium 135 L (137-145) mmol/L Glucose 114 H (74-99) mg/dL Calcium 7.5 L (8.4-10.2) mg/dL Albumin (PEP) (3.80-4.90) g/dL Pvjxp-9-Dcaksbnym (0.60-1.00) g/dL Methylmalonic Acid (<0.40) umol/L Hep Bs Antigen (Non-Reactive) Microbiology - Last 24 Hours (Table) 05/24/20 12:28 Blood Culture - Preliminary Blood No Growth after 24 hours Assessment and Plan Plan: -Hypotension: Secondary to severe hypovolemia, no evidence of sepsis at this time, leukocytosis is reactive in nature. Leukocytosis resolved antibiotics were discontinued -Severe anemia no evidence of acute GI bleed no evidence of retroperitoneal bleed on the CAT scan. Patient may have a subacute or chronic GI bleed from varices which was seen on upper GI endoscopy. Patient had colonoscopy showed grade 2 hemorrhoids -History of hepatitis C leading to cirrhosis status post hepatic transplant and patient is on antiretroviral medications. -Type 2 non-ST elevation myocardial infarction IV heparin will be discontinued. Patient is recommended to have outpatient stress test -Syncope: No more syncopal episodes and syncope secondary to anemia, hypovolemia with probably a competent of the left ventricular outflow tract obstruction -Palpitations: Secondary to hypovolemia and rebound from Cardizem and clonidine -History of liver transplant presently not on any suppressive therapy which was recently discontinued about 5 years ago -Hypovolemic hyponatremia improved with IV fluid -Mild elevation of his enzymes which is a nonspecific elevation , repeat liver enzymes are within normal limits -Mild hyperkalemia resolved
--- NOTE | 2020-05-26 13:57 | P.PN ---
Subjective Progress Note Date: 05/26/20 Principal diagnosis: symptomatic anemia Patient status post egd. Hemoglobin decreased 7.3, evidence of black tarry x2 per patient. Colonoscopy today. Iron and deficiency labs reviewed, since there is evidence of bleeding and iron studies appear inaccurate given they were drawn after PRBC transfusion we will move forward with parental iron. This has been ordered. B12 was low normal, MMA confirms deficiency with elevation and ordered 1000mcg daily x5. Objective - Vital Signs Vital signs: Vital Signs Temp 98.8 F 05/26/20 04:00 Pulse 98 05/26/20 07:00 Resp 19 05/26/20 07:00 BP 112/74 05/26/20 07:00 Pulse Ox 96 05/26/20 07:00 Intake & Output 05/25/20 05/26/20 05/26/20 18:59 06:59 18:59 Intake Total 1900 1600 225 Output Total 850 Balance 1050 1600 225 Weight 68.2 kg Intake: IV 1900 1600 225 Piperacillin-Tazobactam 3 100 .375 gm In Sodium Chloride 0.9% 100 ml @ 25 mls/hr IVPB Q8HR [facility] Rx# :[id number] Potassium Chloride 10 meq 100 100 In Water For Injection 1 100ml.bag @ 100 mls/hr IVPB Q1H [facility] Rx#: [id number] Sodium Chloride 0.9% 1, 1500 1500 125 000 ml @ 125 mls/hr IV . Q8H [facility] Rx#:[id number] Vancomycin 1,250 mg In 250 Sodium Chloride 0.9% 250 ml @ 125 mls/hr IVPB Q12H [facility] Rx#:[id number] Output: Urine 850 Other: Voiding Method Urinal Urinal # Voids 1 # Bowel Movements 1 2 - Exam - Constitutional General appearance: average body habitus, cooperative, disheveled - EENT Eyes: EOMI, PERRLA - Neck Neck: normal ROM Carotids: bilateral: upstroke normal Thyroid: bilateral: normal size - Respiratory Respiratory: bilateral: CTA - Cardiovascular Rhythm: regular Heart sounds: normal: S1, S2 - Gastrointestinal General gastrointestinal: decreased bowel sounds, soft - Integumentary Integumentary: normal turgor - Neurologic Neurologic: CNII-XII intact - Musculoskeletal Musculoskeletal: gait normal, generalized weakness, strength equal bilaterally - Psychiatric Psychiatric: A&O x's 3, appropriate affect, intact judgment & insight - Labs CBC & Chem 7: 05/26/20 04:42 05/26/20 11:21 Labs: Abnormal Lab Results - Last 24 Hours (Table) 05/24/20 05/24/20 05/25/20 Range/Units 05:53 05:53 04:01 RBC (4.30-5.90) m/uL Hgb (13.0-17.5) gm/dL Hct (39.0-53.0) % RDW (11.5-15.5) % Plt Count (150-450) k/uL Sodium (137-145) mmol/L Glucose (74-99) mg/dL Calcium (8.4-10.2) mg/dL Albumin (PEP) 2.66 L (3.80-4.90) g/dL Lcfod-0-Wncruqtfd 0.46 L (0.60-1.00) g/dL Methylmalonic Acid 0.70 H (<0.40) umol/L Hep Bs Antigen Reactive H (Non-Reactive) 05/25/20 05/26/20 05/26/20 Range/Units 11:26 04:42 04:42 RBC 2.94 L 2.43 L (4.30-5.90) m/uL Hgb 8.7 L 7.3 L (13.0-17.5) gm/dL Hct 27.3 L 22.4 L (39.0-53.0) % RDW 17.6 H 18.3 H (11.5-15.5) % Plt Count 84 L 79 L (150-450) k/uL Sodium 135 L (137-145) mmol/L Glucose 114 H (74-99) mg/dL Calcium 7.5 L (8.4-10.2) mg/dL Albumin (PEP) (3.80-4.90) g/dL Rkhvj-1-Amahpneek (0.60-1.00) g/dL Methylmalonic Acid (<0.40) umol/L Hep Bs Antigen (Non-Reactive) Microbiology - Last 24 Hours (Table) 05/24/20 12:28 Blood Culture - Preliminary Blood No Growth after 24 hours Assessment and Plan Plan: Assessment and Recommendations: Leukocytosis: - Likely a reactive increase, mostly neutrophils - Hirsch cultures Near Syncopal Episode: - Severe symptomatic anemia Normocytic anemia: - A drop of 50% after heparin drip was initiated, although no sign of bleeding - Status post 2 units of PRBC - Full anemia work-up ordered: Iron studies unfortnetly not accurate as drawn after PRBC transfusion. B12 low/normal, increased MMA B12 supp ordered. - Transfuse less than 7 - Review of abdominal imaging failed to show evidence of bleeding - Status Post GI eval - non-bleeding varices noted. Colonoscopy today Thrombocytopenia:Leeds to be due to bleeding - Patient has dropped platelet count by greater than half since admission - Heparin was introduced early and platelet drop since this time as well as decreased hemoglobin - Status post GI evaluation did note esophageal varices, although not bleeding at that time. - Platelet decrease secondary to bleeding, less likely from heparin antibodies as its unclear if outside facility he received heparin. - Also note medication and infection as probable contributor, continue monitor daily cbc Supplementation ordered Monitor CBC Hold AC, NSAIDs, Asa while monitoring serial H and H
[2020-05-26] MEDS ORDERED: SIMETHICONE 40 MG/0.6 ML DROPS 2,000 MG/30 ML BOTTLE PO ONE (14:24)
[2020-05-26 16:43] VITALS: RESP 16
--- NOTE | 2020-05-26 16:54 | P.PN ---
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 ago due to hep B Hepatitis B 05/25/2020, patient seen eval examined during the rounds hemodynamics are more stable patient is awake and alert, no episodes of hypotension and syncope has been noted, hemoglobin stable up to 8.7, with prerenal azotemia, patient has been transfused with blood, see transfusion report for detail, discussed with primary services plan to discontinue the antibiotics observe off of antibiotics, patient underwent endoscopy and noted to have gastritis and old esophageal varices which does not appear to be bleeding This is a 70-year-old male who was seen evaluated and examined in ICU patient, patient came into the hospital with acute onset of generalized weakness, data predominantly have been obtained from the patient as well as the nephew present at bedside, in addition to that patient was having palpitation and drop his blood pressure, patient is staying in [facility] Otherwise he used to live in [place], on arrival in the emergency department patient noted to have a blood pressure of 92/63 was tachycardic, patient was noted to have high between of 76 creatinine was normal, troponin was mildly elevated, patient was on heparin drip overnight the heparin drip however have been stopped as patient was lately yelling more syncopal episode and eventually transferred to the ICU most recent vitals reveal blood pressure of 97/65 respiratory rate was 16 heart rate 114 patient is afebrile awake and alert 100% oxygen at room air, his white cell count is up from 13,800-18,800 hemoglobin have dropped down from 10 to 5, he is getting first unit of packed RBC his x-ray shows slight elevated right hemidiaphragm, echocardiogram revealed some LVH along with ejection fraction of 65% patient may have a component of left ventricular outflow track obstruction due to hypertrophic cardiomyopathy, patient is being scheduled for endoscopy, computed tomography scan of the abdominal and pelvis however negative for retroperitoneal hemorrhage, there is infrarenal abdominal aortic aneurysm of 3.2 cm, stranding inflammatory changes of ascending colon seen sister of colitis, cirrhotic-appearing liver, soft tissue density noted in chantel hepatis Objective - Vital Signs Vital signs: Vital Signs Temp 98.0 F 05/26/20 16:41 Pulse 95 05/26/20 16:41 Resp 16 08/20/20 16:41 BP 122/80 05/26/20 16:41 Pulse Ox 98 05/26/20 16:41 Intake & Output 05/25/20 05/26/20 05/26/20 18:59 06:59 18:59 Intake Total 1900 1600 1700 Output Total 850 1 Balance 1050 1600 1699 Weight 68.2 kg Intake: IV 1900 1600 1150 Piperacillin-Tazobactam 3 100 .375 gm In Sodium Chloride 0.9% 100 ml @ 25 mls/hr IVPB Q8HR [facility] Rx# :[id number] Potassium Chloride 10 meq 100 100 In Water For Injection 1 100ml.bag @ 100 mls/hr IVPB Q1H [facility] Rx#: [id number] Sodium Chloride 0.9% 1, 1500 1500 750 000 ml @ 75 mls/hr IV . [id number] [facility] Rx#:[id number] Sodium Ferric Gluconat- 100 Sucrose 125 mg In Sodium Chloride 0.9% 100 ml @ 100 mls/hr IVPB DAILY [facility] Rx#:[id number] Vancomycin 1,250 mg In 250 Sodium Chloride 0.9% 250 ml @ 125 mls/hr IVPB Q12H [facility] Rx#:[id number] Oral 550 Output: Urine 850 Urine/Stool Mix 1 Other: Voiding Method Urinal Urinal Bedside Commode # Voids 1 1 # Bowel Movements 1 2 3 - Exam - Constitutional General appearance: average body habitus, cooperative, disheveled - EENT Eyes: EOMI, PERRLA - Neck Neck: normal ROM Carotids: bilateral: upstroke normal Thyroid: bilateral: normal size - Respiratory Respiratory: bilateral: CTA - Cardiovascular Rhythm: regular Heart sounds: normal: S1, S2 - Gastrointestinal General gastrointestinal: decreased bowel sounds, soft - Integumentary Integumentary: normal turgor - Neurologic Neurologic: CNII-XII intact - Musculoskeletal Musculoskeletal: gait normal, generalized weakness, strength equal bilaterally - Psychiatric Psychiatric: A&O x's 3, appropriate affect, intact judgment & insight - Labs CBC & Chem 7: 05/26/20 04:42 05/26/20 11:21 Labs: Abnormal Lab Results - Last 24 Hours (Table) 05/24/20 05/26/20 05/26/20 Range/Units 05:53 04:42 04:42 RBC 2.43 L (4.30-5.90) m/uL Hgb 7.3 L (13.0-17.5) gm/dL Hct 22.4 L (39.0-53.0) % RDW 18.3 H (11.5-15.5) % Plt Count 79 L (150-450) k/uL Sodium 135 L (137-145) mmol/L Glucose 114 H (74-99) mg/dL Calcium 7.5 L (8.4-10.2) mg/dL Methylmalonic Acid 0.70 H (<0.40) umol/L Microbiology - Last 24 Hours (Table) 05/24/20 12:28 Blood Culture - Preliminary Blood No Growth after 48 hours Assessment and Plan Assessment: Syncopal episodes Microcytic anemia Esophageal varices and diffuse gastritis Hypovolemic shock Early sepsis Severe anemia Hypertrophic cardiomyopathy History of liver transplant over 31 years ago due to hep B Hepatitis B Plan: Keep him nothing by mouth Resuscitation with crystalloid and blood products as needed Blood cultures IV antibiotics can be stopped off observe off of antibiotics Blood transfusion to keep hemoglobin over 7 Status post EGD, colonoscopy is scheduled for tomorrow Hematology and cardiovascular consultation reviewed Further recommendations pending plan of care as per clinical response of the patient Time with Patient: Greater than 30
--- NOTE | 2020-05-26 16:56 | P.PN ---
Subjective Progress Note Date: 05/26/20 Principal diagnosis: Syncopal episodes Microcytic anemia Esophageal varices and diffuse gastritis Hypovolemic shock Early sepsis Severe anemia Hypertrophic cardiomyopathy History of liver transplant over 31 years ago due to hep B Hepatitis B 05/26/2020, patient is awake and alert hemodynamically stable hemoglobin trickled down, no obvious signs of bleeding has been seen, patient has been getting iron infusion, no chest pain shortness of breath is seen, patient remains afebrile off of antibiotics, he is scheduled for colonoscopy later on today 05/25/2020, patient seen eval examined during the rounds hemodynamics are more stable patient is awake and alert, no episodes of hypotension and syncope has been noted, hemoglobin stable up to 8.7, with prerenal azotemia, patient has been transfused with blood, see transfusion report for detail, discussed with primary services plan to discontinue the antibiotics observe off of antibiotics, patient underwent endoscopy and noted to have gastritis and old esophageal varices which does not appear to be bleeding This is a 70-year-old male who was seen evaluated and examined in ICU patient, patient came into the hospital with acute onset of generalized weakness, data predominantly have been obtained from the patient as well as the nephew present at bedside, in addition to that patient was having palpitation and drop his blood pressure, patient is staying in [facility] Otherwise he used to live in [place], on arrival in the emergency department patient noted to have a blood pressure of 92/63 was tachycardic, patient was noted to have high between of 76 creatinine was normal, troponin was mildly elevated, patient was on heparin drip overnight the heparin drip however have been stopped as patient was lately yelling more syncopal episode and eventually transferred to the ICU most recent vitals reveal blood pressure of 97/65 respiratory rate was 16 heart rate 114 patient is afebrile awake and alert 100% oxygen at room air, his white cell count is up from 13,800-18,800 hemoglobin have dropped down from 10 to 5, he is getting first unit of packed RBC his x-ray shows slight elevated right hemidiaphragm, echocardiogram revealed some LVH along with ejection fraction of 65% patient may have a component of left ventricular outflow track obstruction due to hypertrophic cardiomyopathy, patient is being scheduled for endoscopy, computed tomography scan of the abdominal and pelvis however negative for retroperitoneal hemorrhage, there is infrarenal abdominal aortic aneurysm of 3.2 cm, stranding inflammatory changes of ascending colon seen sister of colitis, cirrhotic-appearing liver, soft tissue density noted in chantel hepatis Objective - Vital Signs Vital signs: Vital Signs Temp 98.0 F 05/26/20 16:41 Pulse 95 05/26/20 16:41 Resp 16 05/26/20 16:41 BP 122/80 05/26/20 16:41 Pulse Ox 98 05/26/20 16:41 Intake & Output 05/25/20 05/26/20 05/26/20 18:59 06:59 18:59 Intake Total 1900 1600 1700 Output Total 850 1 Balance 1050 1600 1699 Weight 68.2 kg Intake: IV 1900 1600 1150 Piperacillin-Tazobactam 3 100 .375 gm In Sodium Chloride 0.9% 100 ml @ 25 mls/hr IVPB Q8HR [facility] Rx# :[id number] Potassium Chloride 10 meq 100 100 In Water For Injection 1 100ml.bag @ 100 mls/hr IVPB Q1H [facility] Rx#: [id number] Sodium Chloride 0.9% 1, 1500 1500 750 000 ml @ 75 mls/hr IV . [id number] [facility] Rx#:[id number] Sodium Ferric Gluconat- 100 Sucrose 125 mg In Sodium Chloride 0.9% 100 ml @ 100 mls/hr IVPB DAILY [facility] Rx#:[id number] Vancomycin 1,250 mg In 250 Sodium Chloride 0.9% 250 ml @ 125 mls/hr IVPB Q12H [facility] Rx#:[id number] Oral 550 Output: Urine 850 Urine/Stool Mix 1 Other: Voiding Method Urinal Urinal Bedside Commode # Voids 1 1 # Bowel Movements 1 2 3 - Exam - Constitutional General appearance: average body habitus, cooperative, disheveled - EENT Eyes: EOMI, PERRLA - Neck Neck: normal ROM Carotids: bilateral: upstroke normal Thyroid: bilateral: normal size - Respiratory Respiratory: bilateral: CTA - Cardiovascular Rhythm: regular Heart sounds: normal: S1, S2 - Gastrointestinal General gastrointestinal: decreased bowel sounds, soft - Integumentary Integumentary: normal turgor - Neurologic Neurologic: CNII-XII intact - Musculoskeletal Musculoskeletal: gait normal, generalized weakness, strength equal bilaterally - Psychiatric Psychiatric: A&O x's 3, appropriate affect, intact judgment & insight - Labs CBC & Chem 7: 08/20/20 04:42 05/26/20 11:21 Labs: Abnormal Lab Results - Last 24 Hours (Table) 05/24/20 05/26/20 05/26/20 Range/Units 05:53 04:42 04:42 RBC 2.43 L (4.30-5.90) m/uL Hgb 7.3 L (13.0-17.5) gm/dL Hct 22.4 L (39.0-53.0) % RDW 18.3 H (11.5-15.5) % Plt Count 79 L (150-450) k/uL Sodium 135 L (137-145) mmol/L Glucose 114 H (74-99) mg/dL Calcium 7.5 L (8.4-10.2) mg/dL Methylmalonic Acid 0.70 H (<0.40) umol/L Microbiology - Last 24 Hours (Table) 05/24/20 12:28 Blood Culture - Preliminary Blood No Growth after 48 hours Assessment and Plan Assessment: Syncopal episodes Microcytic anemia Esophageal varices and diffuse gastritis Hypovolemic shock Early sepsis Severe anemia Hypertrophic cardiomyopathy History of liver transplant over 31 years ago due to hep B Hepatitis B Plan: Keep him nothing by mouth, proceed with colonoscopy as planned Resuscitation with crystalloid and blood products as needed Blood cultures IV antibiotics can be stopped off observe off of antibiotics Blood transfusion to keep hemoglobin over 7 Status post EGD, colonoscopy is scheduled for later on today Hematology and cardiovascular consultation reviewed Further recommendations pending plan of care as per clinical response of the patient Time with Patient: Greater than 30
[2020-05-27 06:03] LABS: Anisocytosis Slight; HCT 21.3 % (39.0-53.0); MCH 29.8 pg (25.0-35.0); MCV 93.1 fL (80.0-100.0); Mean Platelet Volume 9.8; RBC 2.28 m/uL (4.30-5.90); RDW 18.6 % (11.5-15.5); WBC 5.4 k/uL (3.8-10.6)
[2020-05-27 06:06] LABS: HGB 6.8 gm/dL (13.0-17.5)
[2020-05-27 06:07] LABS: Platelet Count 90 k/uL (150-450)
[2020-05-27 06:15] LABS: African American GFR (CKD) >90 (>60 ml/min/1.73 sqM); Anion Gap 1 mmol/L; Blood Urea Nitrogen 12 mg/dL (9-20); Calcium 7.4 mg/dL (8.4-10.2); Carbon Dioxide 24 mmol/L (22-30); Chloride 109 mmol/L (98-107); Glucose 92 mg/dL (74-99); Non-African American GFR(CKD) 87 (>60 ml/min/1.73 sqM); Potassium 3.8 mmol/L (3.5-5.1); Sodium 134 mmol/L (137-145)
--- NOTE | 2020-05-27 07:48 | P.PN ---
Subjective Progress Note Date: 05/27/20 Principal diagnosis: Syncope This is a pleasant 70-year-old male past medical history significant for liver transplant, cholelithiasis status post multiple ERCPs, and hypertension. He is not followed with anyone in the office in approximately 10 years. We have been asked to see in consultation for elevated troponin. Patient menses been doing well up until yesterday. Yesterday he had acute onset of palpitations and some shortness breath. He admits his palpitations would be worse after he exerted himself and would feel like a pounding in the chest. Denies any chest pain, pressure or tightness. He does admit to occasional shortness breath with this. He had been fairly active before this with routine swimming and outdoor activities. He did undergo liver transplant approximately 20 years ago and has been doing well with this. He had complications with multiple ERCPs a few years back however has done relatively well. He denies prior history of anemia however his hemoglobin was noted to be mildly low. Denies any hematochezia or melena. No prior cardiac history, no history of murmur per patient, no palpitations prior to the one day ago. While in the emergency department he apparently had an episode of syncope with drop in his blood pressure in the 70s and apparently heart rate of 50s. Patient admits to 1 prior episode of syncope around the time of complications from his liver transplant however routinely does not feel lightheaded and no history of other syncope. His troponins were noted to be mildly elevated and patient was placed on a heparin drip. 05/25/2020 Since admission, patient has been found to have profound anemia and heparin drip was stopped. He had echocardiogram which showed ejection fraction 65% with concern of hypertrophic cardiomyopathy with Lonnie and LVOT obstruction with a peak gradient of 86. His interventricular septum was measured at 1.5 cm however appears to be predominantly concentric hypertrophy. He states his only family history of cardiac disease is a myocarditis of his father and aortopathy and some siblings. He has received 3 units packed red blood cell transfusion. He underwent EGD this morning which showed varices however no acute bleed and is planned for colonoscopy tomorrow. 05/26/2020 Patient underwent EGD yesterday and scheduled for colonoscopy today. Underwent bowel prep and admits to some darkened robson stools however no bright red blood. Denies any chest pain or pressure. Palpitations appear improved. No shortness breath. Mild swelling around his left IV site likely related to inc reased IV fluids through the site. 05/27/2020 Patient seen and examined. Patient denies any chest pain or shortness breath. He did undergo colonoscopy yesterday without source of bleeding noted. He denies any blood in the stool. His hemoglobin was noted to be low again today and check her blood cells were ordered. REVIEW OF SYSTEMS At the time of my exam: CONSTITUTIONAL: Denies fever or chills. CARDIOVASCULAR: Denies chest pain, + intermittent shortness of breath, no orthopnea, PND, + palpitations. RESPIRATORY: Denies cough. GASTROINTESTINAL: Denies abdominal pain, diarrhea, constipation, nausea or vomiting. MUSCULOSKELETAL: Denies myalgias. NEUROLOGIC: Denies numbness, tingling or weakness. ENDOCRINE: Denies fatigue, weight change, polydipsia or polyurina. GENITOURINARY: Denies burning, hematuria or urgency with micturation. PHYSICAL EXAMINATION Blood pressure 129/81 heart rate 104 febrile and maintaining oxygen saturation on 2 L nasal cannula. CONSTITUTIONAL: No apparent distress. HEENT: Head is normocephalic. Pupils are equal, round. Sclerae anicteric. Mucous membranes of the mouth are moist. No JVD. No carotid bruit. CHEST EXAMINATION: Lungs are clear to auscultation. No chest wall tenderness is noted on palpation or with deep breathing. HEART EXAMINATION: Tachycardic rate and regular rhythm. S1, S2 heard. + 2/6 systolic murmur, no gallops or rub. ABDOMEN: Soft, nontender. Positive bowel sounds. EXTREMITIES: 2+ peripheral pulses, no lower extremity edema and no calf tenderness. NEUROLOGIC EXAMINATION: Patient is awake, alert and oriented x3. ASSESSMENT 1. Syncope, likely related to anemia, hypotension with component of LVOT obstruction 2. Elevated troponin of unclear significance. Likely type II mechanism from severe anemia with hemoglobin down to 5, no current angina 3. LVOT obstruction with gradient of 86 mmHg with evidence of LONNIE on echo, con cern of hypertrophic cardiomyopathy however appears concentric hypertrophy with interventricular septum of 1.5 cm 4. Essential hypertension, on home clonidine and diltiazem, borderline hypotensive secondary to anemia 5. Sinus tachycardia which is reactive 6. Palpitations related to sinus tachycardia, no evidence of atrial fibrillation or arrhythmia 7. History of liver transplant 8. Severe anemia, no obvious bleeding per patient. Undergoing GI workup as well as hematology workup PLAN Patient with continued anemia of unclear etiology. Undergoing GI and hematology workup. Blood pressure appears controlled. Patient experiencing sinus tachycardia and no treatment necessary. Mildly elevated troponins appear to be related to anemia and no further workup at this time. Patient has not been expressing any angina. Outpatient follow-up for his suspected hypertrophic cardiomyopathy. No further recommendations from cardiology at this time. Please call with questions. Objective - Vital Signs Vital signs: Vital Signs Temp 98.6 F 05/26/20 23:00 Pulse 104 H 05/26/20 23:00 Resp 16 05/26/20 23:00 BP 129/81 05/26/20 23:00 Pulse Ox 100 05/26/20 23:00 Intake & Output 05/26/20 05/27/20 05/27/20 18:59 06:59 18:59 Intake Total 1700 900 Output Total 1 Balance 1699 900 Weight 70.9 kg Intake: IV 1150 900 Potassium Chloride 10 meq 100 In Water For Injection 1 100ml.bag @ 100 mls/hr IVPB Q1H BRIAN Rx#: [id number] Sodium Chloride 0.9% 1, 750 900 000 ml @ 75 mls/hr IV . [id number] BRIAN Rx#:[id number] Sodium Ferric Gluconat- 100 Sucrose 125 mg In Sodium Chloride 0.9% 100 ml @ 100 mls/hr IVPB DAILY BRIAN Rx#:[id number] Oral 550 Output: Urine/Stool Mix 1 Other: Voiding Method Bedside Commode Bedside Commode # Voids 1 2 # Bowel Movements 3 - Labs CBC & Chem 7: 05/27/20 05:18 05/27/20 05:18 Labs: Abnormal Lab Results - Last 24 Hours (Table) 05/24/20 05/24/20 05/27/20 Range/Units 05:53 07:05 05:18 RBC (4.30-5.90) m/uL Hgb (13.0-17.5) gm/dL Hct (39.0-53.0) % RDW (11.5-15.5) % Plt Count (150-450) k/uL Sodium 134 L (137-145) mmol/L Chloride 109 H (98-107) mmol/L Calcium 7.4 L (8.4-10.2) mg/dL Methylmalonic Acid 0.70 H (<0.40) umol/L Crossmatch See Detail 05/27/20 Range/Units 05:18 RBC 2.28 L (4.30-5.90) m/uL Hgb 6.8 L* (13.0-17.5) gm/dL Hct 21.3 L (39.0-53.0) % RDW 18.6 H (11.5-15.5) % Plt Count 90 L (150-450) k/uL Sodium (137-145) mmol/L Chloride (98-107) mmol/L Calcium (8.4-10.2) mg/dL Methylmalonic Acid (<0.40) umol/L Crossmatch Microbiology - Last 24 Hours (Table) 05/24/20 12:28 Blood Culture - Preliminary Blood No Growth after 48 hours
[2020-05-27] MEDS: PANTOPRAZOLE 40 MG/10 ML VIAL IVP SCH (09:18)
[2020-05-27] MEDS: TENOFOVIR ALAFENAMIDE FUMARATE PO SCH (09:19)
[2020-05-27] MEDS: ursodioL 300 MG CAP PO SCH (09:19)
[2020-05-27] MEDS: SODIUM FERRIC GLUCONAT-SUCROSE 125 MG in SODIUM CHLORIDE 0.9% 100 ML IVPB SCH (09:19)
--- NOTE | 2020-05-27 11:04 | P.PN ---
Subjective Progress Note Date: 05/27/20 Principal diagnosis: Syncopal episodes Microcytic anemia Esophageal varices and diffuse gastritis Hypovolemic shock Early sepsis Severe anemia Hypertrophic cardiomyopathy History of liver transplant over 31 years ago due to hep B Hepatitis B 05/27/2020, patient seen eval reexamined during on sitting upright in the chair hemodynamic status slightly improved, however hemoglobin again dropped down to 6.8, patient is to get 1 unit of packed RBC, he is status post colonoscopy as well as EGD no definite source of bleeding has been seen patient is for Endoscopy 05/26/2020, patient is awake and alert hemodynamically stable hemoglobin trickled down, no obvious signs of bleeding has been seen, patient has been getting iron infusion, no chest pain shortness of breath is seen, patient remains afebrile off of antibiotics, he is scheduled for colonoscopy later on today 05/25/2020, patient seen eval examined during the rounds hemodynamics are more stable patient is awake and alert, no episodes of hypotension and syncope has been noted, hemoglobin stable up to 8.7, with prerenal azotemia, patient has been transfused with blood, see transfusion report for detail, discussed with primary services plan to discontinue the antibiotics observe off of antibiotics, patient underwent endoscopy and noted to have gastritis and old esophageal varices which does not appear to be bleeding This is a 70-year-old male who was seen evaluated and examined in ICU patient, patient came into the hospital with acute onset of generalized weakness, data predominantly have been obtained from the patient as well as the nephew present at bedside, in addition to that patient was having palpitation and drop his blood pressure, patient is staying in [facility] Otherwise he used to live in [place], on arrival in the emergency department patient noted to have a blood pressure of 92/63 was tachycardic, patient was noted to have high between of 76 creatinine was normal, troponin was mildly elevated, patient was on heparin drip overnight the heparin drip however have been stopped as patient was lately yelling more syncopal episode and eventually transferred to the ICU most recent vitals reveal blood pressure of 97/65 respiratory rate was 16 heart rate 114 patient is afebrile awake and alert 100% oxygen at room air, his white cell count is up from 13,800-18,800 hemoglobin have dropped down from 10 to 5, he is getting first unit of packed RBC his x-ray shows slight elevated right hemidiaphragm, echocardiogram revealed some LVH along with ejection fraction of 65% patient may have a component of left ventricular outflow track obstruction due to hypertrophic cardiomyopathy, patient is being scheduled for endoscopy, computed tomography scan of the abdominal and pelvis however negative for retroperitoneal hemorrhage, there is infrarenal abdominal aortic aneurysm of 3.2 cm, stranding inflammatory changes of ascending colon seen sister of colitis, cirrhotic-appearing liver, soft tissue density noted in chantel hepatis Objective - Vital Signs Vital signs: Vital Signs Temp 98.5 F 05/27/20 07:00 Pulse 91 05/27/20 07:00 Resp 16 05/27/20 07:00 BP 100/70 05/27/20 07:00 Pulse Ox 97 05/27/20 07:00 Intake & Output 05/26/20 05/27/20 05/27/20 18:59 06:59 18:59 Intake Total 1700 900 0 Output Total 1 Balance 1699 900 0 Weight 70.9 kg Intake: IV 1150 900 Potassium Chloride 10 meq 100 In Water For Injection 1 100ml.bag @ 100 mls/hr IVPB Q1H BRIAN Rx#: [id number] Sodium Chloride 0.9% 1, 750 900 000 ml @ 75 mls/hr IV . [id number] BRIAN Rx#:[id number] Sodium Ferric Gluconat- 100 Sucrose 125 mg In Sodium Chloride 0.9% 100 ml @ 100 mls/hr IVPB DAILY BRIAN Rx#:[id number] Oral 550 Blood Product 0 Rc As-1 Unit 0 [id number] Output: Urine/Stool Mix 1 Other: Voiding Method Bedside Commode Bedside Commode # Voids 1 2 # Bowel Movements 3 - Exam - Constitutional General appearance: average body habitus, cooperative, disheveled - EENT Eyes: EOMI, PERRLA - Neck Neck: normal ROM Carotids: bilateral: upstroke normal Thyroid: bilateral: normal size - Respiratory Respiratory: bilateral: CTA - Cardiovascular Rhythm: regular Heart sounds: normal: S1, S2 - Gastrointestinal General gastrointestinal: decreased bowel sounds, soft - Integumentary Integumentary: normal turgor - Neurologic Neurologic: CNII-XII intact - Musculoskeletal Musculoskeletal: gait normal, generalized weakness, strength equal bilaterally - Psychiatric Psychiatric: A&O x's 3, appropriate affect, intact judgment & insight - Labs CBC & Chem 7: 05/27/20 05:18 05/27/20 05:18 Labs: Abnormal Lab Results - Last 24 Hours (Table) 05/24/20 05/27/20 05/27/20 Range/Units 07:05 05:18 05:18 RBC 2.28 L (4.30-5.90) m/uL Hgb 6.8 L* (13.0-17.5) gm/dL Hct 21.3 L (39.0-53.0) % RDW 18.6 H (11.5-15.5) % Plt Count 90 L (150-450) k/uL Sodium 134 L (137-145) mmol/L Chloride 109 H (98-107) mmol/L Calcium 7.4 L (8.4-10.2) mg/dL Crossmatch See Detail Microbiology - Last 24 Hours (Table) 05/24/20 12:28 Blood Culture - Preliminary Blood No Growth after 48 hours Assessment and Plan Assessment: Syncopal episodes Microcytic anemia Esophageal varices and diffuse gastritis Hypovolemic shock Early sepsis Severe anemia Hypertrophic cardiomyopathy History of liver transplant over 31 years ago due to hep B Hepatitis B Plan: Transfusion as needed to keep hemoglobin over 7 Resuscitation with crystalloid and blood products as needed Follow-up on Blood cultures observe off of antibiotics Status post EGD, and colonoscopy Continue iron infusion as planned Hematology and cardiovascular consultation reviewed Further recommendations pending plan of care as per clinical response of the patient Time with Patient: Greater than 30
[2020-05-27 11:12] VITALS: PULSE 94
[2020-05-27 11:46] VITALS: BP 131/82; TEMP 98.6
[2020-05-27 12:04] LABS: INR 0.9 (<1.2); Prothrombin Time 9.9 sec (9.0-12.0)
[2020-05-27 12:13] LABS: Albumin 2.9 g/dL (3.5-5.0); Bilirubin, Delta 0.4 mg/dL (0.0-0.2); Bilirubin,Unconjugated 0.2 mg/dL (0.0-1.1); Total Bilirubin 0.6 mg/dL (0.2-1.3); Total Protein 5.6 g/dL (6.3-8.2)
[2020-05-27] MEDS: CYANOCOBALAMIN 1,000 MCG/ML 1 ML VIAL IM SCH (13:16)
--- NOTE | 2020-05-27 13:49 | P.DS ---
Providers Date of admission: 05/23/20 13:34 Attending physician: Daisy Julien Consults: 05/23/20 12:24 Consult Physician Routine Consulting Provider: Benny Murcia Consult Reason/Comments: elevated troponin Do you want consulting provider notified?: Already Contacted 05/24/20 10:49 Consult Physician Routine Consulting Provider: Carlos Price Consult Reason/Comments: ICU management Do you want consulting provider notified?: Yes 05/24/20 12:03 Consult Physician Routine Consulting Provider: Alaina Roblero Consult Reason/Comments: possible endoscopy, blood loss Do you want consulting provider notified?: Yes 05/24/20 12:04 Consult Physician Routine Consulting Provider: Ned Mcclure Consult Reason/Comments: hematology Do you want consulting provider notified?: Yes Primary care physician: [facility] Hospital Course: Patient came in with compensative palpitations and the shortness of breath on exertion denied any orthopnea proximal nocturnal dyspnea. Patient denied any chest pain. Patient had nausea vomiting. Patient had mildly elevated troponin of around 0.2 the second one is around 0.3 because of which patient is being admitted for possible non-ST elevation microinfarction check EKG showed sinus tachycardia without any significant abnormality. Patient does have history of liver transplant patient was on immunosuppressive therapy and to 5 years ago, his weight is up as if therapy was discussed uterine years ago. Patient always is on Cardizem and clonidine for blood pressure Ativan for heart rate patient is hypotensive here in the hospital and patient had a syncopal episode secondary to hypotension. Patient is bit hyponatremic with mild acute renal failure I do not have any orthostatic vitals available which will be ordered. Patient was started on IV fluids and given boluses and patient will be continued on normal saline at 100 mL per hour. Patient did complain of generalized abdominal discomfort with no obvious pain 05/24/2020 Patient had prompt with a hemoglobin to 5 from 10. His hemoglobin in the past was around 12. Patient became hypotensive and received more boluses of IV fluids was subsequently transferred to ICU patient was having syncopes from this as well. Discussed with [facility] transplant pain and do not believe patient will need to be transferred [facility] for these purposes patient had multiple ERCPs in the past. Patient continues to be on IV fluids IV heparin was discontinued as patient myocardial infarction is secondary to type II NSTEMI which is again secondary to anemia. Gastroenterology evaluated the patient patient will undergo upper GI endoscopy. Because of patient's hypotension and leukocytosis patient is being evaluated for sepsis with blood cultures although I do not have any clear source of sepsis patient was started on broad-spectrum Zosyn and vancomycin vancomycin will be discontinued and Zosyn will be continued for now patient had a CAT scan of the abdomen which showed mild colitis patient is not requiring any pressors at this time 05/25/2020 Patient had an upper GI endoscopy today which showed significant varices which were not bleeding and also some gastritis. Patient will undergo colonoscopy tomorrow. Patient lightheadedness improved patient remains tachycardic with a bit. Patient's hemoglobin remained stable and is 8.7 it was 7.8 yesterday patient received one more unit of PRBC transfusion after that still evidence of acute GI bleed.. 05/26/2020 Patient's hemoglobin is 7.2 today probably due to hemodilution from IV fluids were started on IV fluids patient does have some crackles on lung exam probably secondary to atelectasis will obtain a chest x-ray, to make sure there is no pulmonary edema. Patient chest x-ray showed tiny right pleural effusion. Patient did undergo colonoscopy which showed grade 2 hemorrhoids in couple polyps. Patient will transfer out of ICU possibly of discharge tomorrow 05/27/2020 Patient's hemoglobin did go for from 7.3-6.9 which is again hemodynamically effect. Patient will receive 1 unit of PRBC transfusion patient also underwent capsule endoscopy results of which are pending at this time. Patient had upper GI endoscopy and colonoscopy patient had mild gastritis with the varices which were not bleeding and upper GI endoscopy colonoscopy did not show any mass. Patient will need his hemoglobin to be repeated in 3-7 days patient will follow- up with PCP for this. No clinical evidence of acute GI bleed at this time patient will be discharged today. Discussed with Neurology. Patient Heart Rate Is in 90s Blood Pressure Is 100 Systolic, Dizziness Resolved. Patient Will Need a Stress Test As an Outpatient Once He Is More Stable. Clonidine and Cardizem were discontinued patient did not receive his medications throughout his hospitalization PHYSICAL EXAMINATION: GENERAL: The patient is alert and oriented x3, not in any acute distress. Well developed, well nourished. HEENT: Pupils are round and equally reacting to light. EOMI. No scleral icterus. Does have conjunctival pallor. Normocephalic, atraumatic. No pharyngeal erythema. No thyromegaly. CARDIOVASCULAR: S1 and S2 present. No murmurs, rubs, or gallops. PULMONARY: Chest is clear to auscultation, no wheezing or crackles. ABDOMEN: Soft, nontender, nondistended, normoactive bowel sounds. No palpable organomegaly. MUSCULOSKELETAL: No joint swelling or deformity. EXTREMITIES: No cyanosis, clubbing, or pedal edema. NEUROLOGICAL: Gross neurological examination did not reveal any focal deficits. SKIN: No rashes. Assessment and Plan Plan: -Hypotension: Secondary to severe hypovolemia, no evidence of sepsis at this time, leukocytosis is reactive in nature. Leukocytosis resolved antibiotics were discontinued -Severe anemia no evidence of acute GI bleed no evidence of retroperitoneal bleed on the CAT scan. Patient may have a subacute or chronic GI bleed from varices which was seen on upper GI endoscopy. Patient had colonoscopy showed grade 2 hemorrhoids. Pending Endoscopy Results -History of hepatitis C leading to cirrhosis status post hepatic transplant and patient is on antiretroviral medications. -Type 2 non-ST elevation myocardial infarction secondary to anemia. Patient is recommended to have outpatient stress test -Syncope: No more syncopal episodes and syncope secondary to anemia, hypovolemia with probably a competent of the left ventricular outflow tract obstruction, no more dizziness -Palpitations: Secondary to hypovolemia and rebound from Cardizem and clonidine, palpitations resolved and tachycardia resolved -History of liver transplant presently not on any suppressive therapy which was recently discontinued about 5 years ago -Hypovolemic hyponatremia improved with IV fluids -Mild elevation of liver enzymes which is a nonspecific elevation , repeat liver enzymes are within normal limits -Mild hyperkalemia resolved Patient Condition at Discharge: Fair Plan - Discharge Summary Discharge Rx Participant: No New Discharge Prescriptions: New Omeprazole [PriLOSEC] 40 mg PO AC-BRKFST #14 capsule. Continue Tenofovir Alafenamide Fumarate [Vemlidy] 25 mg PO DAILY Multivitamins, Thera [Multivitamin (formulary)] 1 tab PO DAILY Acetaminophen Tab [Tylenol] 1,000 mg PO Q6HR PRN PRN Reason: Pain Or Fever > 100.5 Ursodiol [Moisés] 250 mg PO TID Allopurinol [Zyloprim] 100 mg PO DAILY Discontinued cloNIDine HCL [Catapres] 0.1 mg PO BID Diltiazem Oral [Cardizem Oral] 30 mg PO BID Discharge Medication List Acetaminophen Tab [Tylenol] 1,000 mg PO Q6HR PRN 05/23/20 [History] Allopurinol [Zyloprim] 100 mg PO DAILY 05/23/20 [History] Multivitamins, Thera [Multivitamin (formulary)] 1 tab PO DAILY 05/23/20 [History] Tenofovir Alafenamide Fumarate [Vemlidy] 25 mg PO DAILY 05/23/20 [History] Ursodiol [Moisés] 250 mg PO TID 05/23/20 [History] Omeprazole [PriLOSEC] 40 mg PO DARINFSLinh #14 capsule. 05/27/20 [Rx] Follow up Appointment(s)/Referral(s): Kenyon Khan MD [Primary Care Provider] - 3 Days Discharge Disposition: HOME SELF-CARE
[2020-05-27] MEDS: MAG HYDROX/AL HYDROX/SIMETH 30 ML CUP PO PRN (14:15)
[2020-05-27] MEDS ORDERED: SPIRONOLACTONE 25 MG TAB PO STA (14:48)
[2020-05-27] MEDS ORDERED: PANTOPRAZOLE 40 MG TABLET PO SCH (21:00)
--- NOTE | 2020-05-27 21:14 | PN ---
PROGRESS NOTE DATE OF SERVICE: 05/27/2020 INTERVAL HISTORY: Patient is a 70-year-old white male with history of chronic hepatitis B infection, status post liver transplant in 1988, admitted to the hospital with severe symptomatic anemia and hemoglobin of 5 requiring 4 units of blood transfusion. The patient did not have any active GI bleed. As a part of workup, he underwent an upper endoscopy 2 days ago that showed small esophageal varices and mild portal hypertensive gastropathy. Colonoscopy done yesterday showed 2 small colon polyps but otherwise unremarkable. He subsequently underwent a small bowel capsule endoscopy yesterday following the colonoscopy. The small bowel capsule endoscopy was completely within normal limits. No evidence of small-bowel bleeding or angioectasia noted. In the meantime patient is doing well. He dropped his hemoglobin to 6.8 requiring his 4th unit of blood transfusion today. Overall he is feeling well and wants to go home. He is complaining of some abdominal distention and lower extremity swelling since yesterday. PHYSICAL EXAMINATION: Appears comfortable. No apparent distress. VITAL SIGNS: Stable. Blood pressure is 132/86, pulse rate 94, temperature 96. HEENT: Examination unremarkable. Conjunctivae are pink. Sclerae anicteric. Oral cavity no lesions. NECK: No JVD or lymph node enlargement. CHEST: Clear to auscultation. HEART: Regular rate and rhythm. ABDOMEN: Soft. Bowel sounds are positive. No organomegaly. No free fluid noted. EXTREMITIES: Trace pedal edema. SKIN: No rashes. NEUROLOGIC: Alert and oriented x3. No focal deficits. LABS: WBC 5.4, hemoglobin 6.8, platelets 90,000. AST and ALT are 58 and 79 respectively. T- bilirubin 0.4 and alkaline phosphatase 230. IMPRESSION: 1. Severe symptomatic anemia with a hemoglobin of 5 requiring total of 4 units of PRBC transfusion. He underwent an EGD and colonoscopy and small bowel capsule endoscopy that revealed small esophageal varices, mild portal hypertensive gastropathy, small colon polyps and unremarkable small bowel capsule study. Etiology of anemia remains multifactorial partly contributed with occult gastrointestinal blood loss but some of it contributed to underlying chronic liver disease and anemia of chronic disease. Clinically no active bleeding. 2. Mild lower extremity swelling. 3. History of liver transplant in 1988 for chronic hepatitis B infection. Presently remains on the Tenofovir. 4. Possible underlying cirrhosis of the new transplanted liver. The patient follows with at [facility]. RECOMMENDATIONS: 1. Start him on spironolactone 50 mg daily. 2. Low-salt diet. 3. Monitor CBC closely. 4. He was advised to follow up with his transportation escort, Dr. Kenyon Khan, within 1 week following discharge from the hospital. Thank you for this consultation. MMODL / IJN: [id number] /
== END 2020-05-27 16:16 | disposition home or self-care (01) | DRG 871 ==
LOC: EC 10:37 → 3SCARD 13:34 → 2SICU 05-24 10:22
PROVIDERS: ADMIT Internal Medicine; ATTEND Internal Medicine
PROC: 30233N1 Transfusion of Nonautologous Red Blood Cells into Peripheral Vein, Percutaneous Approach (ICD-10-PCS; 2020-05-24)
PROC: 0DJ08ZZ Inspection of Upper Intestinal Tract, Via Natural or Artificial Opening Endoscopic (ICD-10-PCS; principal; 2020-05-25 07:00)
PROC: 0DBL8ZX Excision of Transverse Colon, Via Natural or Artificial Opening Endoscopic, Diagnostic (ICD-10-PCS; 2020-05-26)
PROC: 0DBP8ZZ Excision of Rectum, Via Natural or Artificial Opening Endoscopic (ICD-10-PCS; 2020-05-26 12:15)
DX: R57.1 Hypovolemic shock (principal); I21.A1 Myocardial infarction type 2; I85.11 Secondary esophageal varices with bleeding; Z94.4 Liver transplant status; E87.2 Acidosis; N17.9 Acute kidney failure, unspecified; E87.1 Hypo-osmolality and hyponatremia; T86.49 Other complications of liver transplant; K76.6 Portal hypertension; I42.1 Obstructive hypertrophic cardiomyopathy; D69.6 Thrombocytopenia, unspecified; D63.8 Anemia in other chronic diseases classified elsewhere; K74.60 Unspecified cirrhosis of liver; R00.0 Tachycardia, unspecified; E87.5 Hyperkalemia; I10 Essential (primary) hypertension; D72.829 Elevated white blood cell count, unspecified; K31.89 Other diseases of stomach and duodenum; K63.5 Polyp of colon; K62.1 Rectal polyp; K64.1 Second degree hemorrhoids; K52.9 Noninfective gastroenteritis and colitis, unspecified; D50.9 Iron deficiency anemia, unspecified; I34.0 Nonrheumatic mitral (valve) insufficiency; K29.70 Gastritis, unspecified, without bleeding; Y83.0 Surgical operation with transplant of whole organ as the cause of abnormal reaction of the patient, or of later complication, without mention of misadventure at the time of the procedure; Z79.899 Other long term (current) drug therapy; Z87.19 Personal history of other diseases of the digestive system; Z82.49 Family history of ischemic heart disease and other diseases of the circulatory system
CPT/HCPCS: 36415; 43235; 45380; 45385; 71045; 74176; 80048; 80053; 80074; 80076; 80202; 81003; 82105; 82607; 82668; 82728; 82746; 82784; 82803; 83010; 83540; 83550; 83605; 83615; 83690; 83735; 83880; 83883; 83921; 84132; 84165; 84443; 84484; 85025; 85027; 85045; 85379; 85384; 85610; 85652; 85730; 86022; 86038; 86431; 86850; 86900; 86901; 86920; 87040; 87340; 88305; 91110; 93005; 93306; 96361; 96365; 96366; 96376; 99285